=== PATIENT | male | born 1980 | race Caucasian/White ===

== ENCOUNTER 2017-05-27 21:34 | Inpatient (IN) | payer MEDICAID, OTHER ==
[~2017-05-27] VITALS: Ht 177.8 cm; Wt 80.1 kg
[2017-05-27] MEDS ORDERED: PALI39DI IM (21:51)
[2017-05-27 22:03] LABS: BASOPHILS % (AUTO) 0.6 % (0.0-2.0); EOSINOPHILS % (AUTO) 2.2 % (1.0-6.0); HEMATOCRIT 39.3 % (41-53); HEMOGLOBIN 13.5 g/dL (13.5-17.5); MEAN CORPUSCULAR HEMOGLOBIN 27.8 pg (26.0-34.0); MEAN CORPUSCULAR HGB CONC 34.4 G/dL (31.0-37.0); MEAN CORPUSCULAR VOLUME 81 fL (80-100); MONOCYTES # (AUTO) 0.9 K/uL (0.1-1.0); NEUTROPHILS # (AUTO) 4.4 K/uL (1.8-7.7); NEUTROPHILS % (AUTO) 52.2 % (40.0-70.0); PLATELET COUNT (AUTO) 215 K/uL (150-450); RED BLOOD CELL COUNT(AUTO) 4.87 MIL/uL (4.50-5.90); RED CELL DISTRIBUTION WIDTH 13.8 % (11.5-14.5)
[2017-05-27] MEDS ORDERED: DiphenhydrAMINE HCL 50 MG/ML VIAL IM ONE (22:15)
[2017-05-27] MEDS ORDERED: LORazepam 2 MG/ML VIAL IM ONE (22:15)
[2017-05-27] MEDS ORDERED: HALOPERIDOL LACTATE 5 MG/ML VIAL IM ONE (22:15)
[2017-05-27 22:20] LABS: ALANINE AMINOTRANSFERASE 67 U/L (12-78); ALBUMIN 3.9 g/dL (3.4-5.0); ALKALINE PHOSPHATASE 77 U/L (46-116); ANION GAP 13 mmol/L (8-16); ASPARTATE AMINOTRANSFERASE 41 U/L (15-37); BILIRUBIN,TOTAL 0.2 mg/dL (0.1-1.0); CALCIUM, TOTAL 8.5 mg/dL (8.8-10.5); CARBON DIOXIDE 26 mmol/L (22-29); CHLORIDE 100 mmol/L (98-107); CREATININE 0.65 mg/dL (0.60-1.30); GLOMERULAR FILTR. RATE CALC > 60 mL/min (>60); GLUCOSE,RANDOM 139 mg/dL (70-110); SODIUM SERUM 139 mmol/L (136-145); TOTAL PROTEIN, SERUM 7.5 g/dL (6.4-8.2); UREA NITROGEN, BLOOD 2 mg/dL (7-18)
[2017-05-27 22:24] LABS: POTASSIUM 2.6 mmol/L (3.5-5.1)
[2017-05-27] MEDS ORDERED: HALOPERIDOL 5 MG TABLET PO PRN (22:30)
[2017-05-27] MEDS ORDERED: ZOLPIDEM TARTRATE 10 MG TABLET PO PRN (22:30)
[2017-05-27] MEDS ORDERED: POTASSIUM CHLORIDE 20 MEQ ER TABLET PO ONE (22:45)
[2017-05-27 23:14] LABS: CHOL/HDL RATIO 4.7 (4.2-7.3); CHOLESTEROL 151 mg/dL (131-200); HDL CHOLESTEROL 32 mg/dL (40-60); LDL CHOL (CALC.) 75 mg/dL (0-130); THYROID STIMULATING HORMONE 2.72 uIU/mL (0.36-3.74); TRIGLYCERIDES 219 mg/dL (15-150)
[2017-05-28 01:24] LABS: AMPHET/METH SCREEN,URINE NEGATIVE (NEGATIVE); BARBITURATE SCREEN, URINE NEGATIVE (NEGATIVE); BENZODIAZEPINES SCREEN,URINE NEGATIVE (NEGATIVE); CANNABINOID SCREEN,URINE NEGATIVE (NEGATIVE); COCAINE SCREEN,URINE NEGATIVE (NEGATIVE); METHADONE SCREEN, URINE NEGATIVE (NEGATIVE); OPIATE SCREEN,URINE NEGATIVE (NEGATIVE)
[2017-05-28 01:26] LABS: PHENCYCLIDINE SCREEN,URINE NEGATIVE (NEGATIVE)
[2017-05-28 01:27] LABS: APPEARANCE,URINE CLEAR (CLEAR); BILIRUBIN,URINE NEGATIVE (NEGATIVE); GLUCOSE, URINE (UA) NEGATIVE (NEGATIVE); KETONES,URINE NEGATIVE (NEGATIVE); LEUKOCYTE ESTERASE ,URINE NEGATIVE (NEGATIVE); NITRATE,URINE NEGATIVE (NEGATIVE); OCCULT BLOOD,URINE NEGATIVE (NEGATIVE); PROTEIN,URINE NEGATIVE (NEGATIVE); UROBILINOGEN,URINE 0.2 mg/dL (<=1.0)
[2017-05-28 03:38] VITALS: BP 149/97
[2017-05-28] MEDS ORDERED: INFLUENZA VIRUS VACCINE QVS 2017-18 (3YR+)/PF 60 MCG/0.5 ML SYRINGE IM ONE (06:15)
[2017-05-28 08:28] VITALS: BP 128/84
[2017-05-28] MEDS ORDERED: ACETAMINOPHEN 325 MG TABLET PO PRN (10:00)
[2017-05-28] MEDS ORDERED: POTASSIUM CHLORIDE 20 MEQ ER TABLET PO ONE (10:00)
[2017-05-28] MEDS ORDERED: BACITRACIN 28.4 GM OINTMENT TP PRN (10:00)
[2017-05-28] MEDS ORDERED: MAG HYDROX/AL HYDROX/SIMETH ES 30 ML SUSPENSION UDCUP PO PRN (10:00)
[2017-05-28] MEDS ORDERED: PETROLATUM,WHITE 71 GM JELLY TP PRN (10:00)
[2017-05-28] MEDS ORDERED: BENZOCAINE/MENTHOL LOZENGE MM PRN (10:00)
[2017-05-28] MEDS ORDERED: CloNIDine HCL 0.1 MG TABLET PO PRN (10:00)
[2017-05-28] MEDS ORDERED: MAGNESIUM HYDROXIDE SUSPENSION 30 ML UDCUP PO PRN (10:00)
[2017-05-28] MEDS ORDERED: IBUPROFEN 600 MG TABLET PO PRN (10:00)
[2017-05-28] MEDS ORDERED: ALBUTEROL SULFATE HFA 90 MCG/PUFF 8 GM INHALER IH PRN (10:00)
[2017-05-28] MEDS ORDERED: LOPERAMIDE HCL 2 MG CAPSULE PO PRN (10:00)
[2017-05-28] MEDS ORDERED: ONDANSETRON HCL 4 MG TABLET PO PRN (10:00)
[2017-05-28] MEDS ORDERED: FLUO-191 PO (10:05)
[2017-05-28] MEDS ORDERED: PALI234D IM (10:05)
[2017-05-28] MEDS: NICOTINE 21 MG/24 HOUR PATCH TD SCH (11:25)
[2017-05-28] MEDS: FLUoxetine HCL 20 MG CAPSULE PO SCH (11:25)
[2017-05-28] MEDS: PALIPERIDONE 3 MG ER TABLET PO SCH ×2 (11:25→17:16)
[2017-05-28 16:19] VITALS: BP 130/91
[2017-05-29 01:46] VITALS: BP 114/74
[2017-05-29 06:13] LABS: POTASSIUM 3.9 mmol/L (3.5-5.1)
[2017-05-29 06:50] LABS: HEMOGLOBIN A1C 5.3 % (4.5-6.2)
[2017-05-29 08:31] VITALS: BP 131/96
[2017-05-29] MEDS: OMEGA-3/DHA/EPA/FISH OIL 1,000 MG CAPSULE PO SCH (09:18)
[2017-05-29] MEDS: NICOTINE 21 MG/24 HOUR PATCH TD SCH (09:18)
[2017-05-29] MEDS: PALIPERIDONE 3 MG ER TABLET PO SCH ×2 (09:18→16:26)
[2017-05-29] MEDS: FLUoxetine HCL 20 MG CAPSULE PO SCH (09:18)
[2017-05-29] MEDS: LORazepam 2 MG TABLET PO PRN ×2 (13:06→17:09)
[2017-05-29 16:42] VITALS: BP 137/95
[2017-05-30] MEDS: LORazepam 2 MG TABLET PO PRN (06:41)
[2017-05-30] MEDS: PALIPERIDONE 3 MG ER TABLET PO SCH (07:53)
[2017-05-30] MEDS: OMEGA-3/DHA/EPA/FISH OIL 1,000 MG CAPSULE PO SCH (07:53)
[2017-05-30] MEDS: NICOTINE 21 MG/24 HOUR PATCH TD SCH (08:23)
[2017-05-30] MEDS: FLUoxetine HCL 20 MG CAPSULE PO SCH (08:23)
[2017-05-30 08:28] VITALS: BP 122/94
[2017-05-30] MEDS ORDERED: PALI3 PO (09:20)
[2017-06-03] MEDS ORDERED: PALIPERIDONE PALMITATE 234 MG/1.5 ML SYRINGE IM SCH (09:00)
== END 2017-05-30 14:20 | disposition home or self-care (01) | DRG 750 ==
LOC: EMS 21:35 → 3EC 05-28 03:16
PROC: 3E0234Z Introduction of Serum, Toxoid and Vaccine into Muscle, Percutaneous Approach (ICD-10-PCS; principal; 2017-05-28)
DX: F25.1 Schizoaffective disorder, depressive type (principal); E83.51 Hypocalcemia; R45.851 Suicidal ideations; E78.1 Pure hyperglyceridemia; E78.5 Hyperlipidemia, unspecified; E87.6 Hypokalemia; F10.10 Alcohol abuse, uncomplicated; F17.200 Nicotine dependence, unspecified, uncomplicated; F41.9 Anxiety disorder, unspecified; G47.00 Insomnia, unspecified; R03.0 Elevated blood-pressure reading, without diagnosis of hypertension; Z71.6 Tobacco abuse counseling; Z79.899 Other long term (current) drug therapy; Z23 Encounter for immunization
CPT/HCPCS: 82306; 83036; 84132; 84443; 90471; G0480; J1200; J1630; J2060

== ENCOUNTER 2017-10-10 11:43 | Inpatient (IN) | payer MEDICAID, OTHER ==
[~2017-10-10] VITALS: Ht 170.2 cm; Wt 85.3 kg
[~2017-10-10 11:43] MED LIST: FLUO-191 PO; PALI234D IM; PALI3 PO
[2017-10-10 12:35] LABS: BASOPHILS % (AUTO) 0.4 % (0.0-2.0); EOSINOPHILS % (AUTO) 1.3 % (1.0-6.0); HEMATOCRIT 41.6 % (41-53); HEMOGLOBIN 14.8 g/dL (13.5-17.5); LYMPHOCYTES # (AUTO) 1.3 K/uL (1.0-4.8); LYMPHOCYTES % (AUTO) 12.3 % (22.0-44.0); MEAN CORPUSCULAR HEMOGLOBIN 29.1 pg (26.0-34.0); MEAN CORPUSCULAR HGB CONC 35.7 G/dL (31.0-37.0); MEAN CORPUSCULAR VOLUME 82 fL (80-100); MONOCYTES # (AUTO) 0.9 K/uL (0.1-1.0); MONOCYTES % (AUTO) 8.4 % (2.0-9.0); NEUTROPHILS # (AUTO) 8.5 K/uL (1.8-7.7); NEUTROPHILS % (AUTO) 77.6 % (40.0-70.0); PLATELET COUNT (AUTO) 297 K/uL (150-450)
[2017-10-10 12:38] LABS: ANION GAP 11 mmol/L (8-16); CALCIUM, TOTAL 8.9 mg/dL (8.8-10.5); CARBON DIOXIDE 26 mmol/L (22-29); CHLORIDE 92 mmol/L (98-107); CREATININE 0.63 mg/dL (0.60-1.30); GLOMERULAR FILTR. RATE CALC > 60 mL/min (>60); GLUCOSE,RANDOM 93 mg/dL (70-110); SODIUM SERUM 129 mmol/L (136-145); UREA NITROGEN, BLOOD 3 mg/dL (7-18)
[2017-10-10 12:41] LABS: ALANINE AMINOTRANSFERASE 17 U/L (12-78); ALBUMIN 3.7 g/dL (3.4-5.0); ALKALINE PHOSPHATASE 63 U/L (46-116); ASPARTATE AMINOTRANSFERASE 14 U/L (15-37); BILIRUBIN,TOTAL 0.7 mg/dL (0.1-1.0); TOTAL PROTEIN, SERUM 7.2 g/dL (6.4-8.2)
[2017-10-10 14:15] LABS: AMPHET/METH SCREEN,URINE POSITIVE (NEGATIVE); BARBITURATE SCREEN, URINE NEGATIVE (NEGATIVE); BENZODIAZEPINES SCREEN,URINE NEGATIVE (NEGATIVE); CANNABINOID SCREEN,URINE NEGATIVE (NEGATIVE); COCAINE SCREEN,URINE NEGATIVE (NEGATIVE); METHADONE SCREEN, URINE NEGATIVE (NEGATIVE); OPIATE SCREEN,URINE NEGATIVE (NEGATIVE); PHENCYCLIDINE SCREEN,URINE NEGATIVE (NEGATIVE)
[2017-10-10] MEDS ORDERED: TERBINAFINE HCL 1% 30 GM CREAM TP ONE (14:15)
[2017-10-10] MEDS ORDERED: DiphenhydrAMINE HCL 50 MG/ML VIAL IM ONE (14:15)
[2017-10-10] MEDS ORDERED: LORazepam 2 MG/ML VIAL IM ONE (14:15)
[2017-10-10] MEDS ORDERED: MUPIROCIN CALCIUM 2% 22 GM OINTMENT TP ONE (14:15)
[2017-10-10] MEDS ORDERED: HALOPERIDOL LACTATE 5 MG/ML VIAL IM ONE (14:15)
[2017-10-10 14:31] LABS: APPEARANCE,URINE CLEAR (CLEAR); BILIRUBIN,URINE NEGATIVE (NEGATIVE); GLUCOSE, URINE (UA) NEGATIVE (NEGATIVE); KETONES,URINE NEGATIVE (NEGATIVE); LEUKOCYTE ESTERASE ,URINE NEGATIVE (NEGATIVE); NITRATE,URINE NEGATIVE (NEGATIVE); OCCULT BLOOD,URINE NEGATIVE (NEGATIVE); PROTEIN,URINE NEGATIVE (NEGATIVE); UROBILINOGEN,URINE 0.2 mg/dL (<=1.0)
[2017-10-10] MEDS ORDERED: DiphenhydrAMINE HCL 25 MG CAPSULE PO ONE (14:45)
[2017-10-10] MEDS ORDERED: LORazepam 2 MG TABLET PO ONE (14:45)
[2017-10-10] MEDS ORDERED: HALOPERIDOL 5 MG TABLET PO ONE (14:45)
[2017-10-10] MEDS ORDERED: POTASSIUM CHLORIDE 20 MEQ ER TABLET PO ONE (15:00)
[2017-10-10] MEDS ORDERED: MAGNESIUM HYDROXIDE SUSPENSION 30 ML UDCUP PO PRN (20:00)
[2017-10-10] MEDS ORDERED: MAG HYDROX/AL HYDROX/SIMETH ES 30 ML SUSPENSION UDCUP PO PRN (20:00)
[2017-10-11 00:34] VITALS: BP 116/69
[2017-10-11 09:09] LABS: CHOL/HDL RATIO 3.4 (4.2-7.3)
[2017-10-11] MEDS ORDERED: POTASSIUM CHLORIDE 20 MEQ ER TABLET PO ONE (09:30)
[2017-10-11] MEDS ORDERED: SODIUM CHLORIDE 1 GM TABLET PO ONE ×2 (09:30→17:00)
[2017-10-11] MEDS: NICOTINE 21 MG/24 HOUR PATCH TD SCH (09:44)
[2017-10-11 11:34] VITALS: BP 110/62
[2017-10-11 16:00] VITALS: BP 114/79
[2017-10-11] MEDS: PALIPERIDONE 6 MG ER TABLET PO SCH (20:40)
[2017-10-12 06:57] VITALS: BP 110/76
[2017-10-12] MEDS ORDERED: PETROLATUM,WHITE 71 GM JELLY TP PRN (07:00)
[2017-10-12] MEDS ORDERED: CloNIDine HCL 0.1 MG TABLET PO PRN (07:00)
[2017-10-12] MEDS ORDERED: ALBUTEROL SULFATE HFA 90 MCG/PUFF 8 GM INHALER IH PRN (07:00)
[2017-10-12] MEDS ORDERED: LOPERAMIDE HCL 2 MG CAPSULE PO PRN (07:00)
[2017-10-12] MEDS ORDERED: ONDANSETRON HCL 4 MG TABLET PO PRN (07:00)
[2017-10-12] MEDS ORDERED: BENZOCAINE/MENTHOL LOZENGE MM PRN (07:00)
[2017-10-12] MEDS ORDERED: BACITRACIN 28.4 GM OINTMENT TP PRN (07:00)
[2017-10-12 08:25] VITALS: BP 104/73
[2017-10-12 08:28] LABS: ANION GAP 4 mmol/L (8-16); CALCIUM, TOTAL 8.7 mg/dL (8.8-10.5); CARBON DIOXIDE 32 mmol/L (22-29); CHLORIDE 105 mmol/L (98-107); CREATININE 0.81 mg/dL (0.60-1.30); GLOMERULAR FILTR. RATE CALC > 60 mL/min (>60); GLUCOSE,RANDOM 75 mg/dL (70-110); SODIUM SERUM 141 mmol/L (136-145); UREA NITROGEN, BLOOD 8 mg/dL (7-18)
[2017-10-12] MEDS: LORazepam 2 MG TABLET PO PRN ×2 (09:27→16:47)
[2017-10-12] MEDS: NICOTINE 21 MG/24 HOUR PATCH TD SCH (09:27)
[2017-10-12] MEDS: FLUoxetine HCL 20 MG CAPSULE PO SCH (09:27)
[2017-10-12] MEDS: HALOPERIDOL 5 MG TABLET PO PRN ×2 (09:27→16:47)
[2017-10-12 16:00] VITALS: BP 130/83
[2017-10-12] MEDS: PALIPERIDONE 6 MG ER TABLET PO SCH (20:34)
[2017-10-13 06:20] VITALS: BP 96/67
[2017-10-13] MEDS: LORazepam 2 MG TABLET PO PRN ×2 (08:16→16:16)
[2017-10-13] MEDS: HALOPERIDOL 5 MG TABLET PO PRN ×2 (08:16→16:16)
[2017-10-13] MEDS: NICOTINE 21 MG/24 HOUR PATCH TD SCH (08:16)
[2017-10-13] MEDS: FLUoxetine HCL 20 MG CAPSULE PO SCH (08:16)
[2017-10-13 13:28] VITALS: BP 100/61
[2017-10-13 16:00] VITALS: BP 141/69
[2017-10-13] MEDS: NICOTINE POLACRILEX 2 MG LOZENGE PO PRN (16:15)
[2017-10-13] MEDS: PALIPERIDONE 6 MG ER TABLET PO SCH (21:23)
[2017-10-14 06:38] VITALS: BP 104/65
[2017-10-14 09:14] VITALS: BP 103/68
[2017-10-14] MEDS: NICOTINE 21 MG/24 HOUR PATCH TD SCH (10:06)
[2017-10-14] MEDS: FLUoxetine HCL 20 MG CAPSULE PO SCH (10:10)
[2017-10-14 16:00] VITALS: BP 118/76
[2017-10-14] MEDS: HALOPERIDOL 5 MG TABLET PO PRN (16:57)
[2017-10-14] MEDS: LORazepam 2 MG TABLET PO PRN (16:57)
[2017-10-14] MEDS: PALIPERIDONE 6 MG ER TABLET PO SCH (20:27)
[2017-10-15 00:13] VITALS: BP 119/74
[2017-10-15 08:20] VITALS: BP 101/71
[2017-10-15] MEDS: NICOTINE 21 MG/24 HOUR PATCH TD SCH (09:00)
[2017-10-15] MEDS: FLUoxetine HCL 20 MG CAPSULE PO SCH (10:05)
[2017-10-15] MEDS: LORazepam 2 MG TABLET PO PRN ×2 (10:09→20:43)
[2017-10-15] MEDS: NICOTINE POLACRILEX 2 MG LOZENGE PO PRN ×2 (10:09→14:23)
[2017-10-15 16:00] VITALS: BP 111/68
[2017-10-15] MEDS: PALIPERIDONE 6 MG ER TABLET PO SCH (20:43)
[2017-10-16] MEDS: NICOTINE POLACRILEX 2 MG LOZENGE PO PRN ×4 (01:44→12:19)
[2017-10-16 06:30] VITALS: BP 115/78
[2017-10-16] MEDS: LORazepam 2 MG TABLET PO PRN (06:35)
[2017-10-16 08:23] VITALS: BP 109/76
[2017-10-16] MEDS: FLUoxetine HCL 20 MG CAPSULE PO SCH (08:25)
[2017-10-16] MEDS: NICOTINE 21 MG/24 HOUR PATCH TD SCH (09:00)
[2017-10-16 16:00] VITALS: BP 109/67
[2017-10-16] MEDS: PALIPERIDONE 6 MG ER TABLET PO SCH (20:42)
[2017-10-17 04:52] VITALS: BP 117/78
[2017-10-17] MEDS: LORazepam 2 MG TABLET PO PRN ×2 (06:03→14:54)
[2017-10-17] MEDS: NICOTINE POLACRILEX 2 MG LOZENGE PO PRN ×3 (06:03→14:54)
[2017-10-17 08:00] VITALS: BP 108/73
[2017-10-17] MEDS: FLUoxetine HCL 20 MG CAPSULE PO SCH (08:45)
[2017-10-17] MEDS: NICOTINE 21 MG/24 HOUR PATCH TD SCH (08:45)
[2017-10-17] MEDS ORDERED: TUBERCULIN, PURIFIED PROTEIN DERIVATIVE 5 TU/0.1 ML SYG ID ONE (12:15)
[2017-10-17 16:00] VITALS: BP 106/69
[2017-10-17] MEDS: PALIPERIDONE 6 MG ER TABLET PO SCH (20:22)
[2017-10-18] MEDS: NICOTINE POLACRILEX 2 MG LOZENGE PO PRN ×2 (05:18→09:08)
[2017-10-18 05:22] VITALS: BP 104/69
[2017-10-18] MEDS: LORazepam 2 MG TABLET PO PRN ×3 (06:17→21:00)
[2017-10-18] MEDS: FLUoxetine HCL 20 MG CAPSULE PO SCH (08:17)
[2017-10-18] MEDS: CHOLECALCIFEROL (VIT D3) 1,000 UNITS TABLET PO SCH (08:17)
[2017-10-18 08:35] VITALS: BP 103/69
[2017-10-18] MEDS: NICOTINE 21 MG/24 HOUR PATCH TD SCH (09:00)
[2017-10-18 16:38] VITALS: BP 101/62
[2017-10-18] MEDS: PALIPERIDONE 6 MG ER TABLET PO SCH (21:00)
[2017-10-19 02:00] VITALS: BP 113/77
[2017-10-19] MEDS: NICOTINE POLACRILEX 2 MG LOZENGE PO PRN ×3 (06:34→16:06)
[2017-10-19] MEDS: LORazepam 2 MG TABLET PO PRN ×2 (06:34→16:05)
[2017-10-19] MEDS: CHOLECALCIFEROL (VIT D3) 1,000 UNITS TABLET PO SCH (08:41)
[2017-10-19] MEDS: FLUoxetine HCL 20 MG CAPSULE PO SCH (08:41)
[2017-10-19] MEDS: NICOTINE 21 MG/24 HOUR PATCH TD SCH (08:42)
[2017-10-19 09:24] VITALS: BP 100/62
[2017-10-19] MEDS: HALOPERIDOL 5 MG TABLET PO PRN (16:05)
[2017-10-19 16:40] VITALS: BP 116/71
[2017-10-19] MEDS: PALIPERIDONE 6 MG ER TABLET PO SCH (20:33)
[2017-10-19] MEDS: ZOLPIDEM TARTRATE 10 MG TABLET PO PRN (20:33)
[2017-10-20 06:25] VITALS: BP 110/65
[2017-10-20] MEDS: NICOTINE POLACRILEX 2 MG LOZENGE PO PRN ×3 (06:34→16:20)
[2017-10-20] MEDS: LORazepam 2 MG TABLET PO PRN ×3 (06:34→17:03)
[2017-10-20] MEDS: FLUoxetine HCL 20 MG CAPSULE PO SCH (08:25)
[2017-10-20] MEDS: CHOLECALCIFEROL (VIT D3) 1,000 UNITS TABLET PO SCH (08:25)
[2017-10-20 08:41] VITALS: BP 100/62
[2017-10-20] MEDS: NICOTINE 21 MG/24 HOUR PATCH TD SCH (09:00)
[2017-10-20 16:00] VITALS: BP 112/69
[2017-10-20] MEDS: HALOPERIDOL 5 MG TABLET PO PRN (16:21)
[2017-10-20] MEDS: PALIPERIDONE 6 MG ER TABLET PO SCH (21:18)
[2017-10-20] MEDS: ZOLPIDEM TARTRATE 10 MG TABLET PO PRN (21:18)
[2017-10-21 05:35] VITALS: BP 110/65
[2017-10-21] MEDS: NICOTINE POLACRILEX 2 MG LOZENGE PO PRN ×2 (05:55→12:47)
[2017-10-21] MEDS: LORazepam 2 MG TABLET PO PRN ×2 (05:55→16:38)
[2017-10-21 08:15] VITALS: BP 121/74
[2017-10-21] MEDS: NICOTINE 21 MG/24 HOUR PATCH TD SCH (08:38)
[2017-10-21] MEDS: CHOLECALCIFEROL (VIT D3) 1,000 UNITS TABLET PO SCH (08:38)
[2017-10-21] MEDS: FLUoxetine HCL 20 MG CAPSULE PO SCH (08:38)
[2017-10-21 16:28] VITALS: BP 124/84
[2017-10-21] MEDS: HALOPERIDOL 5 MG TABLET PO PRN (16:38)
[2017-10-21] MEDS: ZOLPIDEM TARTRATE 10 MG TABLET PO PRN (21:40)
[2017-10-21] MEDS: PALIPERIDONE 6 MG ER TABLET PO SCH (21:40)
[2017-10-22 00:18] VITALS: BP 111/65
[2017-10-22] MEDS: NICOTINE POLACRILEX 2 MG LOZENGE PO PRN ×2 (06:06→22:24)
[2017-10-22] MEDS: LORazepam 2 MG TABLET PO PRN ×3 (06:06→20:53)
[2017-10-22 08:20] VITALS: BP 117/81
[2017-10-22] MEDS: NICOTINE 21 MG/24 HOUR PATCH TD SCH (09:00)
[2017-10-22] MEDS: FLUoxetine HCL 20 MG CAPSULE PO SCH (09:05)
[2017-10-22] MEDS: CHOLECALCIFEROL (VIT D3) 1,000 UNITS TABLET PO SCH (09:05)
[2017-10-22 16:00] VITALS: BP 114/68
[2017-10-22] MEDS: PALIPERIDONE 6 MG ER TABLET PO SCH (20:53)
[2017-10-22] MEDS: ZOLPIDEM TARTRATE 10 MG TABLET PO PRN (22:25)
[2017-10-23 05:54] VITALS: BP 118/78
[2017-10-23] MEDS: NICOTINE POLACRILEX 2 MG LOZENGE PO PRN ×3 (06:19→14:40)
[2017-10-23] MEDS: LORazepam 2 MG TABLET PO PRN ×2 (06:19→14:40)
[2017-10-23 08:30] VITALS: BP 120/85
[2017-10-23] MEDS: FLUoxetine HCL 20 MG CAPSULE PO SCH (08:36)
[2017-10-23] MEDS: CHOLECALCIFEROL (VIT D3) 1,000 UNITS TABLET PO SCH (08:36)
[2017-10-23] MEDS: NICOTINE 21 MG/24 HOUR PATCH TD SCH (08:38)
[2017-10-23 16:00] VITALS: BP 109/76
[2017-10-23] MEDS ORDERED: NICOTINE 21 MG/24 HOUR PATCH TD PRN (20:30)
[2017-10-23] MEDS: PALIPERIDONE 6 MG ER TABLET PO SCH (20:56)
[2017-10-23] MEDS: ZOLPIDEM TARTRATE 10 MG TABLET PO PRN (20:56)
[2017-10-24] MEDS: NICOTINE POLACRILEX 2 MG LOZENGE PO PRN ×2 (04:55→14:13)
[2017-10-24] MEDS: LORazepam 2 MG TABLET PO PRN ×2 (04:55→14:13)
[2017-10-24 04:56] VITALS: BP 137/71
[2017-10-24 08:27] VITALS: BP 131/85
[2017-10-24] MEDS: CHOLECALCIFEROL (VIT D3) 1,000 UNITS TABLET PO SCH (08:53)
[2017-10-24] MEDS: FLUoxetine HCL 20 MG CAPSULE PO SCH (08:53)
[2017-10-24 16:00] VITALS: BP 120/80
[2017-10-24] MEDS: PALIPERIDONE 6 MG ER TABLET PO SCH (20:49)
[2017-10-25 00:05] VITALS: BP 115/73
[2017-10-25] MEDS: LORazepam 2 MG TABLET PO PRN ×3 (00:20→13:16)
[2017-10-25] MEDS: ZOLPIDEM TARTRATE 10 MG TABLET PO PRN (00:20)
[2017-10-25] MEDS: NICOTINE POLACRILEX 2 MG LOZENGE PO PRN ×3 (00:26→13:13)
[2017-10-25 07:55] VITALS: BP 118/76
[2017-10-25] MEDS: HALOPERIDOL 5 MG TABLET PO PRN (08:09)
[2017-10-25] MEDS: CHOLECALCIFEROL (VIT D3) 1,000 UNITS TABLET PO SCH (08:09)
[2017-10-25] MEDS: FLUoxetine HCL 20 MG CAPSULE PO SCH (08:09)
[2017-10-25 16:28] VITALS: BP 117/72
[2017-10-25] MEDS: PALIPERIDONE 6 MG ER TABLET PO SCH (20:35)
[2017-10-26 03:45] VITALS: BP 105/78
[2017-10-26] MEDS: LORazepam 2 MG TABLET PO PRN ×3 (04:07→22:56)
[2017-10-26] MEDS: NICOTINE POLACRILEX 2 MG LOZENGE PO PRN ×4 (04:07→22:53)
[2017-10-26 08:51] VITALS: BP 130/88
[2017-10-26] MEDS: CHOLECALCIFEROL (VIT D3) 1,000 UNITS TABLET PO SCH (10:07)
[2017-10-26] MEDS: FLUoxetine HCL 20 MG CAPSULE PO SCH (10:07)
[2017-10-26 16:14] VITALS: BP 100/60
[2017-10-26] MEDS: PALIPERIDONE 6 MG ER TABLET PO SCH (21:11)
[2017-10-27 05:42] VITALS: BP 118/76
[2017-10-27] MEDS: LORazepam 2 MG TABLET PO PRN ×3 (06:06→16:34)
[2017-10-27] MEDS: NICOTINE POLACRILEX 2 MG LOZENGE PO PRN ×2 (06:06→11:03)
[2017-10-27 08:10] VITALS: BP 113/75
[2017-10-27] MEDS: FLUoxetine HCL 20 MG CAPSULE PO SCH (08:54)
[2017-10-27] MEDS: CHOLECALCIFEROL (VIT D3) 1,000 UNITS TABLET PO SCH (08:54)
[2017-10-27 16:09] VITALS: BP 106/61
[2017-10-27] MEDS: PALIPERIDONE 6 MG ER TABLET PO SCH (21:04)
[2017-10-28] MEDS: NICOTINE POLACRILEX 2 MG LOZENGE PO PRN ×3 (05:12→16:06)
[2017-10-28] MEDS: LORazepam 2 MG TABLET PO PRN ×3 (05:12→16:06)
[2017-10-28 05:48] VITALS: BP 110/68
[2017-10-28 08:15] VITALS: BP 108/63
[2017-10-28] MEDS: FLUoxetine HCL 20 MG CAPSULE PO SCH (08:54)
[2017-10-28] MEDS: CHOLECALCIFEROL (VIT D3) 1,000 UNITS TABLET PO SCH (08:54)
[2017-10-28 16:00] VITALS: BP 107/64
[2017-10-28] MEDS: HALOPERIDOL 5 MG TABLET PO PRN (16:06)
[2017-10-28] MEDS: PALIPERIDONE 3 MG ER TABLET PO SCH (20:37)
[2017-10-29 04:10] VITALS: BP 108/66
[2017-10-29] MEDS: LORazepam 2 MG TABLET PO PRN ×3 (04:25→20:47)
[2017-10-29] MEDS: HALOPERIDOL 5 MG TABLET PO PRN (04:58)
[2017-10-29 08:27] VITALS: BP_SYST 114; BP_SYST 138; BP_DIAS 73; BP_DIAS 98
[2017-10-29] MEDS: CHOLECALCIFEROL (VIT D3) 1,000 UNITS TABLET PO SCH (08:51)
[2017-10-29] MEDS: FLUoxetine HCL 20 MG CAPSULE PO SCH (08:52)
[2017-10-29] MEDS: NICOTINE POLACRILEX 2 MG LOZENGE PO PRN ×2 (10:09→12:47)
[2017-10-29 16:00] VITALS: BP 106/67
[2017-10-29] MEDS: ZOLPIDEM TARTRATE 10 MG TABLET PO PRN (20:47)
[2017-10-29] MEDS: PALIPERIDONE 3 MG ER TABLET PO SCH (20:47)
[2017-10-30 03:51] VITALS: BP 102/62
[2017-10-30] MEDS: LORazepam 2 MG TABLET PO PRN ×3 (04:06→18:14)
[2017-10-30 08:09] VITALS: BP 138/87
[2017-10-30] MEDS: FLUoxetine HCL 20 MG CAPSULE PO SCH (08:17)
[2017-10-30] MEDS: CHOLECALCIFEROL (VIT D3) 1,000 UNITS TABLET PO SCH (08:17)
[2017-10-30] MEDS: NICOTINE POLACRILEX 2 MG LOZENGE PO PRN ×2 (08:19→17:33)
[2017-10-30 16:42] VITALS: BP 108/64
[2017-10-30] MEDS: PALIPERIDONE 3 MG ER TABLET PO SCH (20:39)
[2017-10-31] MEDS: LORazepam 2 MG TABLET PO PRN ×3 (04:12→13:38)
[2017-10-31] MEDS: NICOTINE POLACRILEX 2 MG LOZENGE PO PRN ×3 (04:12→13:38)
[2017-10-31 04:16] VITALS: BP 117/69
[2017-10-31 08:00] VITALS: BP 112/83
[2017-10-31] MEDS: FLUoxetine HCL 20 MG CAPSULE PO SCH (08:37)
[2017-10-31] MEDS: CHOLECALCIFEROL (VIT D3) 1,000 UNITS TABLET PO SCH (08:37)
[2017-10-31 16:00] VITALS: BP 110/74
[2017-10-31] MEDS: ZOLPIDEM TARTRATE 10 MG TABLET PO PRN (20:10)
[2017-10-31] MEDS: PALIPERIDONE 3 MG ER TABLET PO SCH (20:10)
[2017-11-01 03:23] VITALS: BP 102/66
[2017-11-01] MEDS: LORazepam 2 MG TABLET PO PRN ×3 (03:37→21:37)
[2017-11-01] MEDS: NICOTINE POLACRILEX 2 MG LOZENGE PO PRN ×2 (03:37→11:02)
[2017-11-01 08:00] VITALS: BP 116/80
[2017-11-01] MEDS: CHOLECALCIFEROL (VIT D3) 1,000 UNITS TABLET PO SCH (08:21)
[2017-11-01] MEDS: FLUoxetine HCL 20 MG CAPSULE PO SCH (08:21)
[2017-11-01 16:25] VITALS: BP 132/92
[2017-11-01] MEDS: PALIPERIDONE 3 MG ER TABLET PO SCH (20:53)
[2017-11-01] MEDS: ZOLPIDEM TARTRATE 10 MG TABLET PO PRN (21:37)
[2017-11-02 04:58] VITALS: BP 125/70
[2017-11-02] MEDS: LORazepam 2 MG TABLET PO PRN ×3 (05:22→20:56)
[2017-11-02] MEDS: NICOTINE POLACRILEX 2 MG LOZENGE PO PRN ×3 (05:22→20:56)
[2017-11-02 08:15] VITALS: BP 110/70
[2017-11-02] MEDS: FLUoxetine HCL 20 MG CAPSULE PO SCH (08:59)
[2017-11-02] MEDS: CHOLECALCIFEROL (VIT D3) 1,000 UNITS TABLET PO SCH (08:59)
[2017-11-02 16:10] VITALS: BP 135/85
[2017-11-02] MEDS: PALIPERIDONE 3 MG ER TABLET PO SCH (20:56)
[2017-11-02] MEDS: ZOLPIDEM TARTRATE 10 MG TABLET PO PRN (20:56)
[2017-11-03 04:50] VITALS: BP 108/66
[2017-11-03] MEDS: LORazepam 2 MG TABLET PO PRN ×3 (04:53→20:11)
[2017-11-03] MEDS: NICOTINE POLACRILEX 2 MG LOZENGE PO PRN ×3 (05:09→20:13)
[2017-11-03 08:09] VITALS: BP 111/74
[2017-11-03] MEDS: FLUoxetine HCL 20 MG CAPSULE PO SCH (09:07)
[2017-11-03] MEDS: CHOLECALCIFEROL (VIT D3) 1,000 UNITS TABLET PO SCH (09:07)
[2017-11-03 16:08] VITALS: BP 115/71
[2017-11-03] MEDS: PALIPERIDONE 3 MG ER TABLET PO SCH (20:11)
[2017-11-04 00:18] VITALS: BP 106/61
[2017-11-04] MEDS: NICOTINE POLACRILEX 2 MG LOZENGE PO PRN (05:48)
[2017-11-04] MEDS: LORazepam 2 MG TABLET PO PRN ×2 (05:49→16:48)
[2017-11-04 08:14] VITALS: BP 128/87
[2017-11-04] MEDS: CHOLECALCIFEROL (VIT D3) 1,000 UNITS TABLET PO SCH (08:51)
[2017-11-04] MEDS: FLUoxetine HCL 20 MG CAPSULE PO SCH (08:51)
[2017-11-04 16:58] VITALS: BP 122/84
[2017-11-04] MEDS: PALIPERIDONE 3 MG ER TABLET PO SCH (20:30)
[2017-11-04] MEDS: ZOLPIDEM TARTRATE 10 MG TABLET PO PRN (20:30)
[2017-11-05 00:10] VITALS: BP 101/61
[2017-11-05] MEDS: LORazepam 2 MG TABLET PO PRN ×3 (06:01→23:52)
[2017-11-05 08:12] VITALS: BP 131/88
[2017-11-05] MEDS: NICOTINE POLACRILEX 2 MG LOZENGE PO PRN ×2 (08:39→23:52)
[2017-11-05] MEDS: CHOLECALCIFEROL (VIT D3) 1,000 UNITS TABLET PO SCH (08:39)
[2017-11-05] MEDS: FLUoxetine HCL 20 MG CAPSULE PO SCH (08:39)
[2017-11-05 16:27] VITALS: BP 121/76
[2017-11-05] MEDS: PALIPERIDONE 3 MG ER TABLET PO SCH (20:41)
[2017-11-06 05:41] VITALS: BP 98/64
[2017-11-06 09:00] VITALS: BP 142/95
[2017-11-06] MEDS: LORazepam 2 MG TABLET PO PRN ×2 (09:30→18:23)
[2017-11-06] MEDS: FLUoxetine HCL 20 MG CAPSULE PO SCH (09:31)
[2017-11-06] MEDS: CHOLECALCIFEROL (VIT D3) 1,000 UNITS TABLET PO SCH (09:31)
[2017-11-06] MEDS: NICOTINE POLACRILEX 2 MG LOZENGE PO PRN ×2 (09:31→18:23)
[2017-11-06 17:02] VITALS: BP 128/78
[2017-11-06] MEDS: PALIPERIDONE 3 MG ER TABLET PO SCH (20:43)
[2017-11-07 03:56] VITALS: BP 102/64
[2017-11-07] MEDS: LORazepam 2 MG TABLET PO PRN ×3 (04:00→20:39)
[2017-11-07 08:00] VITALS: BP 132/86
[2017-11-07] MEDS: CHOLECALCIFEROL (VIT D3) 1,000 UNITS TABLET PO SCH (08:26)
[2017-11-07] MEDS: FLUoxetine HCL 20 MG CAPSULE PO SCH (08:26)
[2017-11-07] MEDS: NICOTINE POLACRILEX 2 MG LOZENGE PO PRN ×3 (08:46→20:39)
[2017-11-07 16:00] VITALS: BP 114/73
[2017-11-07] MEDS: PALIPERIDONE 3 MG ER TABLET PO SCH (20:35)
[2017-11-07] MEDS: ZOLPIDEM TARTRATE 10 MG TABLET PO PRN (20:39)
[2017-11-08] MEDS: NICOTINE POLACRILEX 2 MG LOZENGE PO PRN ×2 (05:08→16:57)
[2017-11-08] MEDS: LORazepam 2 MG TABLET PO PRN ×3 (05:08→16:55)
[2017-11-08 05:22] VITALS: BP 104/72
[2017-11-08 08:12] LABS: BASOPHILS % (AUTO) 0.3 % (0.0-2.0); EOSINOPHILS % (AUTO) 1.6 % (1.0-6.0); HEMATOCRIT 44.1 % (41-53); LYMPHOCYTES # (AUTO) 1.7 K/uL (1.0-4.8); LYMPHOCYTES % (AUTO) 27.6 % (22.0-44.0); MEAN CORPUSCULAR HEMOGLOBIN 28.4 pg (26.0-34.0); MEAN CORPUSCULAR VOLUME 83 fL (80-100); MONOCYTES # (AUTO) 0.5 K/uL (0.1-1.0); MONOCYTES % (AUTO) 7.8 % (2.0-9.0); NEUTROPHILS # (AUTO) 3.8 K/uL (1.8-7.7); NEUTROPHILS % (AUTO) 62.7 % (40.0-70.0); PLATELET COUNT (AUTO) 219 K/uL (150-450); RED BLOOD CELL COUNT(AUTO) 5.29 MIL/uL (4.50-5.90); RED CELL DISTRIBUTION WIDTH 14.4 % (11.5-14.5)
[2017-11-08 08:25] VITALS: BP 116/80
[2017-11-08] MEDS: CHOLECALCIFEROL (VIT D3) 1,000 UNITS TABLET PO SCH (08:30)
[2017-11-08] MEDS: FLUoxetine HCL 20 MG CAPSULE PO SCH (08:30)
[2017-11-08 08:59] LABS: ALANINE AMINOTRANSFERASE 26 U/L (12-78); ALBUMIN 4.1 g/dL (3.4-5.0); ALKALINE PHOSPHATASE 57 U/L (46-116); ANION GAP 9 mmol/L (8-16); ASPARTATE AMINOTRANSFERASE 17 U/L (15-37); BILIRUBIN,TOTAL 0.7 mg/dL (0.1-1.0); CALCIUM, TOTAL 8.7 mg/dL (8.8-10.5); CARBON DIOXIDE 27 mmol/L (22-29); CHLORIDE 96 mmol/L (98-107); CREATININE 0.64 mg/dL (0.60-1.30); GLOMERULAR FILTR. RATE CALC > 60 mL/min (>60); GLUCOSE,RANDOM 72 mg/dL (70-110); POTASSIUM 4.7 mmol/L (3.5-5.1); SODIUM SERUM 132 mmol/L (136-145); TOTAL PROTEIN, SERUM 7.5 g/dL (6.4-8.2); UREA NITROGEN, BLOOD 7 mg/dL (7-18)
[2017-11-08] MEDS: SODIUM CHLORIDE 1 GM TABLET PO SCH ×3 (10:23→16:55)
[2017-11-08 17:07] VITALS: BP 115/71
[2017-11-08] MEDS: PALIPERIDONE 3 MG ER TABLET PO SCH (20:57)
[2017-11-08] MEDS: ZOLPIDEM TARTRATE 10 MG TABLET PO PRN (20:57)
[2017-11-09] MEDS: NICOTINE POLACRILEX 2 MG LOZENGE PO PRN ×2 (04:38→16:41)
[2017-11-09] MEDS: LORazepam 2 MG TABLET PO PRN ×2 (04:38→13:35)
[2017-11-09 05:14] VITALS: BP 112/68
[2017-11-09 08:00] VITALS: BP 135/63
[2017-11-09] MEDS: SODIUM CHLORIDE 1 GM TABLET PO SCH ×3 (09:23→16:41)
[2017-11-09] MEDS: CHOLECALCIFEROL (VIT D3) 1,000 UNITS TABLET PO SCH (09:23)
[2017-11-09] MEDS: FLUoxetine HCL 20 MG CAPSULE PO SCH (09:23)
[2017-11-09 16:00] VITALS: BP 130/85
[2017-11-09] MEDS: ZOLPIDEM TARTRATE 10 MG TABLET PO PRN (20:17)
[2017-11-09] MEDS: PALIPERIDONE 3 MG ER TABLET PO SCH (20:17)
[2017-11-10 03:08] VITALS: BP 139/88
[2017-11-10] MEDS: LORazepam 2 MG TABLET PO PRN ×3 (03:09→14:37)
[2017-11-10] MEDS: NICOTINE POLACRILEX 2 MG LOZENGE PO PRN ×3 (03:09→14:37)
[2017-11-10 08:27] LABS: ANION GAP 8 mmol/L (8-16); CALCIUM, TOTAL 8.6 mg/dL (8.8-10.5); CARBON DIOXIDE 28 mmol/L (22-29); CHLORIDE 92 mmol/L (98-107); CREATININE 0.62 mg/dL (0.60-1.30); GLOMERULAR FILTR. RATE CALC > 60 mL/min (>60); GLUCOSE,RANDOM 80 mg/dL (70-110); POTASSIUM 4.4 mmol/L (3.5-5.1); SODIUM SERUM 128 mmol/L (136-145); UREA NITROGEN, BLOOD 7 mg/dL (7-18)
[2017-11-10 08:31] VITALS: BP 110/71
[2017-11-10] MEDS: SODIUM CHLORIDE 1 GM TABLET PO SCH (08:58)
[2017-11-10] MEDS: CHOLECALCIFEROL (VIT D3) 1,000 UNITS TABLET PO SCH (08:58)
[2017-11-10] MEDS: FLUoxetine HCL 20 MG CAPSULE PO SCH (08:59)
[2017-11-10 16:09] VITALS: BP 117/77
[2017-11-10] MEDS: PALIPERIDONE 3 MG ER TABLET PO SCH (20:29)
[2017-11-11 04:10] VITALS: BP 111/70
[2017-11-11] MEDS: LORazepam 2 MG TABLET PO PRN ×3 (04:11→12:55)
[2017-11-11] MEDS: NICOTINE POLACRILEX 2 MG LOZENGE PO PRN ×3 (04:11→12:55)
[2017-11-11 08:09] VITALS: BP 122/82
[2017-11-11] MEDS: FLUoxetine HCL 20 MG CAPSULE PO SCH (08:16)
[2017-11-11] MEDS: CHOLECALCIFEROL (VIT D3) 1,000 UNITS TABLET PO SCH (08:16)
[2017-11-11] MEDS: SODIUM CHLORIDE 1 GM TABLET PO SCH ×3 (10:25→17:27)
[2017-11-11 16:00] VITALS: BP 106/63
[2017-11-11] MEDS: PALIPERIDONE 3 MG ER TABLET PO SCH (20:29)
[2017-11-12 03:11] VITALS: BP 114/62
[2017-11-12] MEDS: LORazepam 2 MG TABLET PO PRN ×3 (03:13→13:06)
[2017-11-12] MEDS: NICOTINE POLACRILEX 2 MG LOZENGE PO PRN ×3 (03:14→13:06)
[2017-11-12 08:10] VITALS: BP 112/64
[2017-11-12 08:43] LABS: BASOPHILS % (AUTO) 0.6 % (0.0-2.0); EOSINOPHILS % (AUTO) 2.1 % (1.0-6.0); HEMATOCRIT 43.1 % (41-53); LYMPHOCYTES # (AUTO) 1.9 K/uL (1.0-4.8); LYMPHOCYTES % (AUTO) 36.6 % (22.0-44.0); MEAN CORPUSCULAR HEMOGLOBIN 28.7 pg (26.0-34.0); MEAN CORPUSCULAR HGB CONC 34.8 G/dL (31.0-37.0); MEAN CORPUSCULAR VOLUME 82 fL (80-100); MONOCYTES # (AUTO) 0.3 K/uL (0.1-1.0); MONOCYTES % (AUTO) 6.3 % (2.0-9.0); NEUTROPHILS # (AUTO) 2.9 K/uL (1.8-7.7); NEUTROPHILS % (AUTO) 54.4 % (40.0-70.0); PLATELET COUNT (AUTO) 221 K/uL (150-450); RED BLOOD CELL COUNT(AUTO) 5.23 MIL/uL (4.50-5.90); RED CELL DISTRIBUTION WIDTH 14.3 % (11.5-14.5)
[2017-11-12] MEDS: CHOLECALCIFEROL (VIT D3) 1,000 UNITS TABLET PO SCH (08:48)
[2017-11-12] MEDS: FLUoxetine HCL 20 MG CAPSULE PO SCH (08:48)
[2017-11-12] MEDS: SODIUM CHLORIDE 1 GM TABLET PO SCH ×2 (08:48→12:31)
[2017-11-12 10:06] LABS: ALANINE AMINOTRANSFERASE 22 U/L (12-78); ALBUMIN 4.2 g/dL (3.4-5.0); ALKALINE PHOSPHATASE 54 U/L (46-116); ANION GAP 6 mmol/L (8-16); ASPARTATE AMINOTRANSFERASE 13 U/L (15-37); BILIRUBIN,TOTAL 0.7 mg/dL (0.1-1.0); CARBON DIOXIDE 31 mmol/L (22-29); CHLORIDE 102 mmol/L (98-107); CREATININE 0.79 mg/dL (0.60-1.30); GLOMERULAR FILTR. RATE CALC > 60 mL/min (>60); GLUCOSE,RANDOM 75 mg/dL (70-110); PHOSPHORUS 4.7 mg/dL (2.5-4.9); POTASSIUM 4.2 mmol/L (3.5-5.1); SODIUM SERUM 139 mmol/L (136-145); TOTAL PROTEIN, SERUM 7.6 g/dL (6.4-8.2); UREA NITROGEN, BLOOD 8 mg/dL (7-18)
[2017-11-12 14:25] VITALS: BP 110/66
[2017-11-12] MEDS: ACETAMINOPHEN 325 MG TABLET PO PRN (14:25)
[2017-11-12 16:00] VITALS: BP 105/65
[2017-11-12] MEDS: PALIPERIDONE 3 MG ER TABLET PO SCH (21:09)
[2017-11-13] MEDS: LORazepam 2 MG TABLET PO PRN ×4 (04:04→20:30)
[2017-11-13 04:06] VITALS: BP 110/62
[2017-11-13] MEDS: NICOTINE POLACRILEX 2 MG LOZENGE PO PRN ×2 (04:31→20:31)
[2017-11-13 08:09] VITALS: BP 116/62
[2017-11-13] MEDS: CHOLECALCIFEROL (VIT D3) 1,000 UNITS TABLET PO SCH (08:32)
[2017-11-13] MEDS: FLUoxetine HCL 20 MG CAPSULE PO SCH (08:32)
[2017-11-13 08:38] LABS: BAND NEUTROPHILS % (MANUAL) 0 % (0-5)
[2017-11-13 08:44] LABS: HEMATOCRIT 41.9 % (41-53); HEMOGLOBIN 14.1 g/dL (13.5-17.5); MEAN CORPUSCULAR HEMOGLOBIN 28.4 pg (26.0-34.0); MEAN CORPUSCULAR HGB CONC 33.6 G/dL (31.0-37.0); MEAN CORPUSCULAR VOLUME 84 fL (80-100); PLATELET COUNT (AUTO) 219 K/uL (150-450); RED BLOOD CELL COUNT(AUTO) 4.97 MIL/uL (4.50-5.90); RED CELL DISTRIBUTION WIDTH 14.7 % (11.5-14.5)
[2017-11-13 09:10] LABS: ANION GAP 9 mmol/L (8-16); CALCIUM, TOTAL 8.9 mg/dL (8.8-10.5); CARBON DIOXIDE 30 mmol/L (22-29); CHLORIDE 101 mmol/L (98-107); GLOMERULAR FILTR. RATE CALC > 60 mL/min (>60); GLUCOSE,RANDOM 102 mg/dL (70-110); PHOSPHORUS 4.8 mg/dL (2.5-4.9); POTASSIUM 4.1 mmol/L (3.5-5.1); SODIUM SERUM 140 mmol/L (136-145); UREA NITROGEN, BLOOD 14 mg/dL (7-18)
[2017-11-13 09:46] LABS: APPEARANCE,URINE CLEAR (CLEAR); BILIRUBIN,URINE NEGATIVE (NEGATIVE); GLUCOSE, URINE (UA) NEGATIVE (NEGATIVE); KETONES,URINE NEGATIVE (NEGATIVE); LEUKOCYTE ESTERASE ,URINE NEGATIVE (NEGATIVE); NITRATE,URINE NEGATIVE (NEGATIVE); OCCULT BLOOD,URINE NEGATIVE (NEGATIVE); PH,URINE 6.5 (5.0-8.0); PROTEIN,URINE NEGATIVE (NEGATIVE); UROBILINOGEN,URINE 0.2 mg/dL (<=1.0)
[2017-11-13 10:17] LABS: EOSINOPHILS % (MANUAL) 4 % (1-6); LYMPHOCYTES % (MANUAL) 33 % (22-44); MONOCYTES % (MANUAL) 8 % (2-9); SEGMENTED NEUTROPHILS % 55 % (40-70)
[2017-11-13 16:00] VITALS: BP 104/72
[2017-11-13] MEDS: PALIPERIDONE 3 MG ER TABLET PO SCH (20:30)
[2017-11-14 00:04] VITALS: BP 104/63
[2017-11-14] MEDS: LORazepam 2 MG TABLET PO PRN ×2 (04:42→11:38)
[2017-11-14] MEDS: NICOTINE POLACRILEX 2 MG LOZENGE PO PRN ×2 (04:42→11:38)
[2017-11-14 08:35] VITALS: BP 103/58
[2017-11-14] MEDS: FLUoxetine HCL 20 MG CAPSULE PO SCH (09:24)
[2017-11-14] MEDS: CHOLECALCIFEROL (VIT D3) 1,000 UNITS TABLET PO SCH (09:24)
[2017-11-14 16:14] VITALS: BP 105/69
[2017-11-14] MEDS: PALIPERIDONE 3 MG ER TABLET PO SCH (20:15)
[2017-11-15 01:20] VITALS: BP 108/70
[2017-11-15] MEDS: NICOTINE POLACRILEX 2 MG LOZENGE PO PRN ×3 (01:21→13:38)
[2017-11-15] MEDS: LORazepam 2 MG TABLET PO PRN ×3 (01:21→13:38)
[2017-11-15 08:09] VITALS: BP 130/61
[2017-11-15] MEDS: CHOLECALCIFEROL (VIT D3) 1,000 UNITS TABLET PO SCH (08:14)
[2017-11-15] MEDS: FLUoxetine HCL 20 MG CAPSULE PO SCH (08:15)
[2017-11-15 16:20] VITALS: BP 112/62
[2017-11-15] MEDS: PALIPERIDONE 3 MG ER TABLET PO SCH (20:07)
[2017-11-16] MEDS: ZOLPIDEM TARTRATE 10 MG TABLET PO PRN (02:03)
[2017-11-16] MEDS: LORazepam 2 MG TABLET PO PRN ×4 (02:03→16:52)
[2017-11-16 06:29] VITALS: BP 109/78
[2017-11-16 08:09] VITALS: BP 112/65
[2017-11-16] MEDS: FLUoxetine HCL 20 MG CAPSULE PO SCH (08:15)
[2017-11-16] MEDS: CHOLECALCIFEROL (VIT D3) 1,000 UNITS TABLET PO SCH (08:15)
[2017-11-16] MEDS: NICOTINE POLACRILEX 2 MG LOZENGE PO PRN ×2 (08:15→12:25)
[2017-11-16 17:09] VITALS: BP 108/72
[2017-11-16] MEDS: PALIPERIDONE 3 MG ER TABLET PO SCH (20:19)
[2017-11-17 01:16] VITALS: BP 113/88
[2017-11-17] MEDS: LORazepam 2 MG TABLET PO PRN ×2 (05:30→20:48)
[2017-11-17] MEDS: NICOTINE POLACRILEX 2 MG LOZENGE PO PRN ×2 (05:45→20:48)
[2017-11-17 08:10] VITALS: BP 111/61
[2017-11-17] MEDS: FLUoxetine HCL 20 MG CAPSULE PO SCH (08:29)
[2017-11-17] MEDS: CHOLECALCIFEROL (VIT D3) 1,000 UNITS TABLET PO SCH (08:29)
[2017-11-17 16:29] VITALS: BP 110/65
[2017-11-17] MEDS: PALIPERIDONE 3 MG ER TABLET PO SCH (20:43)
[2017-11-18 05:00] VITALS: BP 116/68
[2017-11-18] MEDS: LORazepam 2 MG TABLET PO PRN ×3 (08:10→16:49)
[2017-11-18] MEDS: CHOLECALCIFEROL (VIT D3) 1,000 UNITS TABLET PO SCH (08:10)
[2017-11-18] MEDS: FLUoxetine HCL 20 MG CAPSULE PO SCH (08:10)
[2017-11-18 08:14] VITALS: BP 111/65
[2017-11-18 16:15] VITALS: BP 107/74
[2017-11-18] MEDS: PALIPERIDONE 3 MG ER TABLET PO SCH (20:30)
[2017-11-18] MEDS: ZOLPIDEM TARTRATE 10 MG TABLET PO PRN (20:30)
[2017-11-19 02:12] VITALS: BP 109/69
[2017-11-19] MEDS: NICOTINE POLACRILEX 2 MG LOZENGE PO PRN ×4 (04:10→21:25)
[2017-11-19] MEDS: LORazepam 2 MG TABLET PO PRN ×4 (04:33→21:25)
[2017-11-19 08:13] VITALS: BP 108/65
[2017-11-19] MEDS: CHOLECALCIFEROL (VIT D3) 1,000 UNITS TABLET PO SCH (08:52)
[2017-11-19] MEDS: FLUoxetine HCL 20 MG CAPSULE PO SCH (08:52)
[2017-11-19 16:25] VITALS: BP 114/70
[2017-11-19] MEDS: PALIPERIDONE 3 MG ER TABLET PO SCH (20:31)
[2017-11-19] MEDS: ZOLPIDEM TARTRATE 10 MG TABLET PO PRN (21:25)
[2017-11-20] MEDS: LORazepam 2 MG TABLET PO PRN ×3 (05:12→21:50)
[2017-11-20 05:28] VITALS: BP 118/68
[2017-11-20 08:17] VITALS: BP 111/60
[2017-11-20] MEDS: FLUoxetine HCL 20 MG CAPSULE PO SCH (09:15)
[2017-11-20] MEDS: CHOLECALCIFEROL (VIT D3) 1,000 UNITS TABLET PO SCH (09:15)
[2017-11-20] MEDS: NICOTINE POLACRILEX 2 MG LOZENGE PO PRN (12:52)
[2017-11-20 16:00] VITALS: BP 110/71
[2017-11-20] MEDS: PALIPERIDONE 3 MG ER TABLET PO SCH (20:32)
[2017-11-20] MEDS: ZOLPIDEM TARTRATE 10 MG TABLET PO PRN (21:50)
[2017-11-21 04:18] VITALS: BP 109/69
[2017-11-21] MEDS: NICOTINE POLACRILEX 2 MG LOZENGE PO PRN ×4 (04:31→20:56)
[2017-11-21] MEDS: LORazepam 2 MG TABLET PO PRN ×3 (04:31→20:56)
[2017-11-21] MEDS: CHOLECALCIFEROL (VIT D3) 1,000 UNITS TABLET PO SCH (08:13)
[2017-11-21] MEDS: FLUoxetine HCL 20 MG CAPSULE PO SCH (08:13)
[2017-11-21 08:15] VITALS: BP 108/63
[2017-11-21 16:46] VITALS: BP 101/63
[2017-11-21] MEDS: ZOLPIDEM TARTRATE 10 MG TABLET PO PRN (20:56)
[2017-11-21] MEDS: PALIPERIDONE 3 MG ER TABLET PO SCH (20:56)
[2017-11-22 03:42] VITALS: BP 112/73
[2017-11-22] MEDS: LORazepam 2 MG TABLET PO PRN ×4 (03:45→22:22)
[2017-11-22] MEDS: FLUoxetine HCL 20 MG CAPSULE PO SCH (08:31)
[2017-11-22] MEDS: CHOLECALCIFEROL (VIT D3) 1,000 UNITS TABLET PO SCH (08:32)
[2017-11-22 08:33] VITALS: BP 100/57
[2017-11-22] MEDS: NICOTINE POLACRILEX 2 MG LOZENGE PO PRN ×2 (12:35→16:10)
[2017-11-22 16:05] VITALS: BP 114/68
[2017-11-22] MEDS: PALIPERIDONE 3 MG ER TABLET PO SCH (20:09)
[2017-11-23 05:50] VITALS: BP 114/77
[2017-11-23] MEDS: LORazepam 2 MG TABLET PO PRN ×3 (05:53→21:07)
[2017-11-23] MEDS: NICOTINE POLACRILEX 2 MG LOZENGE PO PRN ×3 (05:54→21:07)
[2017-11-23 08:09] VITALS: BP 122/75
[2017-11-23] MEDS: CHOLECALCIFEROL (VIT D3) 1,000 UNITS TABLET PO SCH (08:54)
[2017-11-23] MEDS: FLUoxetine HCL 20 MG CAPSULE PO SCH (08:54)
[2017-11-23 16:06] VITALS: BP 120/94
[2017-11-23] MEDS: PALIPERIDONE 3 MG ER TABLET PO SCH (20:26)
[2017-11-24 04:27] VITALS: BP 108/63
[2017-11-24] MEDS: LORazepam 2 MG TABLET PO PRN ×3 (07:02→23:57)
[2017-11-24] MEDS: NICOTINE POLACRILEX 2 MG LOZENGE PO PRN ×2 (08:51→15:50)
[2017-11-24] MEDS: CHOLECALCIFEROL (VIT D3) 1,000 UNITS TABLET PO SCH (08:51)
[2017-11-24] MEDS: FLUoxetine HCL 20 MG CAPSULE PO SCH (08:51)
[2017-11-24 08:53] VITALS: BP 107/86
[2017-11-24 16:09] VITALS: BP 106/65
[2017-11-24] MEDS: PALIPERIDONE 3 MG ER TABLET PO SCH (20:34)
[2017-11-24 23:50] VITALS: BP 108/77
[2017-11-25] MEDS: NICOTINE POLACRILEX 2 MG LOZENGE PO PRN ×3 (00:13→12:04)
[2017-11-25 05:55] VITALS: BP 110/68
[2017-11-25 08:31] VITALS: BP 108/69
[2017-11-25] MEDS: CHOLECALCIFEROL (VIT D3) 1,000 UNITS TABLET PO SCH (08:32)
[2017-11-25] MEDS: FLUoxetine HCL 20 MG CAPSULE PO SCH (08:32)
[2017-11-25] MEDS: LORazepam 2 MG TABLET PO PRN (16:25)
[2017-11-25 16:29] VITALS: BP 132/77
[2017-11-25] MEDS: PALIPERIDONE 3 MG ER TABLET PO SCH (20:14)
[2017-11-25] MEDS: ZOLPIDEM TARTRATE 10 MG TABLET PO PRN (20:16)
[2017-11-26] MEDS: LORazepam 2 MG TABLET PO PRN ×4 (01:24→16:06)
[2017-11-26] MEDS: NICOTINE POLACRILEX 2 MG LOZENGE PO PRN ×2 (01:24→16:07)
[2017-11-26 01:43] VITALS: BP 120/81
[2017-11-26 08:55] VITALS: BP 125/93
[2017-11-26] MEDS: CHOLECALCIFEROL (VIT D3) 1,000 UNITS TABLET PO SCH (09:41)
[2017-11-26] MEDS: FLUoxetine HCL 20 MG CAPSULE PO SCH (09:41)
[2017-11-26 16:12] VITALS: BP 118/83
[2017-11-26] MEDS: PALIPERIDONE 3 MG ER TABLET PO SCH (20:19)
[2017-11-27 00:53] VITALS: BP 102/62
[2017-11-27] MEDS: LORazepam 2 MG TABLET PO PRN ×3 (04:28→16:49)
[2017-11-27] MEDS: NICOTINE POLACRILEX 2 MG LOZENGE PO PRN ×4 (04:34→17:52)
[2017-11-27] MEDS: CHOLECALCIFEROL (VIT D3) 1,000 UNITS TABLET PO SCH (08:17)
[2017-11-27] MEDS: FLUoxetine HCL 20 MG CAPSULE PO SCH (08:17)
[2017-11-27 08:38] VITALS: BP 109/74
[2017-11-27 16:05] VITALS: BP 115/73
[2017-11-27] MEDS: PALIPERIDONE 3 MG ER TABLET PO SCH (20:03)
[2017-11-28 05:35] VITALS: BP 110/75
[2017-11-28] MEDS: LORazepam 2 MG TABLET PO PRN ×3 (05:39→18:41)
[2017-11-28] MEDS: NICOTINE POLACRILEX 2 MG LOZENGE PO PRN ×4 (05:39→20:26)
[2017-11-28] MEDS: FLUoxetine HCL 20 MG CAPSULE PO SCH (08:13)
[2017-11-28] MEDS: CHOLECALCIFEROL (VIT D3) 1,000 UNITS TABLET PO SCH (08:13)
[2017-11-28 08:43] VITALS: BP 126/73
[2017-11-28 16:12] VITALS: BP 129/86
[2017-11-28] MEDS: PALIPERIDONE 3 MG ER TABLET PO SCH (20:23)
[2017-11-29 02:48] VITALS: BP 112/72
[2017-11-29] MEDS: NICOTINE POLACRILEX 2 MG LOZENGE PO PRN ×3 (06:41→14:03)
[2017-11-29] MEDS: LORazepam 2 MG TABLET PO PRN ×3 (06:41→15:57)
[2017-11-29 08:23] VITALS: BP 120/82
[2017-11-29] MEDS: FLUoxetine HCL 20 MG CAPSULE PO SCH (09:20)
[2017-11-29] MEDS: CHOLECALCIFEROL (VIT D3) 1,000 UNITS TABLET PO SCH (09:20)
[2017-11-29 16:36] VITALS: BP 121/72
[2017-11-29] MEDS: PALIPERIDONE 3 MG ER TABLET PO SCH (20:20)
[2017-11-30 04:40] VITALS: BP 110/68
[2017-11-30] MEDS: LORazepam 2 MG TABLET PO PRN ×3 (04:44→16:55)
[2017-11-30 08:09] VITALS: BP 113/72
[2017-11-30] MEDS: CHOLECALCIFEROL (VIT D3) 1,000 UNITS TABLET PO SCH (08:32)
[2017-11-30] MEDS: NICOTINE POLACRILEX 2 MG LOZENGE PO PRN ×3 (08:32→16:03)
[2017-11-30] MEDS: FLUoxetine HCL 20 MG CAPSULE PO SCH (08:32)
[2017-11-30] MEDS: HALOPERIDOL 5 MG TABLET PO PRN (13:09)
[2017-11-30 16:11] VITALS: BP 119/77
[2017-11-30] MEDS: PALIPERIDONE 3 MG ER TABLET PO SCH (20:46)
[2017-12-01 06:09] VITALS: BP 121/68
[2017-12-01] MEDS: LORazepam 2 MG TABLET PO PRN ×2 (06:57→13:11)
[2017-12-01] MEDS: CHOLECALCIFEROL (VIT D3) 1,000 UNITS TABLET PO SCH (08:34)
[2017-12-01] MEDS: FLUoxetine HCL 20 MG CAPSULE PO SCH (08:35)
[2017-12-01] MEDS: NICOTINE POLACRILEX 2 MG LOZENGE PO PRN ×3 (08:35→16:19)
[2017-12-01 09:05] VITALS: BP 119/73
[2017-12-01] MEDS: HALOPERIDOL 5 MG TABLET PO PRN (13:11)
[2017-12-01 16:19] VITALS: BP 115/69
[2017-12-01] MEDS: PALIPERIDONE 3 MG ER TABLET PO SCH (20:28)
[2017-12-02 04:37] VITALS: BP 110/68
[2017-12-02] MEDS: NICOTINE POLACRILEX 2 MG LOZENGE PO PRN ×3 (04:47→12:31)
[2017-12-02] MEDS: LORazepam 2 MG TABLET PO PRN (04:47)
[2017-12-02] MEDS: CHOLECALCIFEROL (VIT D3) 1,000 UNITS TABLET PO SCH (08:19)
[2017-12-02] MEDS: FLUoxetine HCL 20 MG CAPSULE PO SCH (08:19)
[2017-12-02 08:30] VITALS: BP 112/77
[2017-12-02 14:23] VITALS: BP 123/87
[2017-12-02] MEDS: ACETAMINOPHEN 325 MG TABLET PO PRN (14:23)
[2017-12-02] MEDS: HALOPERIDOL 5 MG TABLET PO PRN (14:31)
[2017-12-02 16:07] VITALS: BP 123/82
[2017-12-02] MEDS: IBUPROFEN 600 MG TABLET PO PRN (16:46)
[2017-12-02] MEDS: PALIPERIDONE 3 MG ER TABLET PO SCH (20:13)
[2017-12-03 00:01] VITALS: BP 116/81
[2017-12-03] MEDS: LORazepam 2 MG TABLET PO PRN ×3 (00:04→16:30)
[2017-12-03] MEDS: NICOTINE POLACRILEX 2 MG LOZENGE PO PRN ×4 (00:05→16:00)
[2017-12-03 08:36] VITALS: BP 120/75
[2017-12-03] MEDS: CHOLECALCIFEROL (VIT D3) 1,000 UNITS TABLET PO SCH (09:14)
[2017-12-03] MEDS: FLUoxetine HCL 20 MG CAPSULE PO SCH (09:15)
[2017-12-03] MEDS: HALOPERIDOL 5 MG TABLET PO PRN (12:17)
[2017-12-03 19:15] VITALS: BP 118/73
[2017-12-03] MEDS: PALIPERIDONE 3 MG ER TABLET PO SCH (20:26)
[2017-12-04 05:53] VITALS: BP 120/81
[2017-12-04] MEDS: LORazepam 2 MG TABLET PO PRN ×3 (05:56→21:00)
[2017-12-04 08:00] VITALS: BP 127/89
[2017-12-04] MEDS: FLUoxetine HCL 20 MG CAPSULE PO SCH (09:05)
[2017-12-04] MEDS: CHOLECALCIFEROL (VIT D3) 1,000 UNITS TABLET PO SCH (09:05)
[2017-12-04] MEDS: NICOTINE POLACRILEX 2 MG LOZENGE PO PRN ×3 (10:37→21:00)
[2017-12-04 14:08] VITALS: BP 118/82
[2017-12-04] MEDS: IBUPROFEN 600 MG TABLET PO PRN (14:08)
[2017-12-04 16:11] VITALS: BP 134/83
[2017-12-04] MEDS: PALIPERIDONE 3 MG ER TABLET PO SCH (20:43)
[2017-12-05 05:20] VITALS: BP 110/68
[2017-12-05] MEDS: LORazepam 2 MG TABLET PO PRN ×3 (05:46→16:25)
[2017-12-05] MEDS: NICOTINE POLACRILEX 2 MG LOZENGE PO PRN ×3 (08:18→14:46)
[2017-12-05] MEDS: FLUoxetine HCL 20 MG CAPSULE PO SCH (08:18)
[2017-12-05] MEDS: CHOLECALCIFEROL (VIT D3) 1,000 UNITS TABLET PO SCH (08:18)
[2017-12-05 08:31] VITALS: BP 122/87
[2017-12-05 12:14] VITALS: BP 120/86
[2017-12-05] MEDS: HALOPERIDOL 5 MG TABLET PO PRN (12:14)
[2017-12-05] MEDS: IBUPROFEN 600 MG TABLET PO PRN (12:14)
[2017-12-05 16:14] VITALS: BP 111/76
[2017-12-05] MEDS: PALIPERIDONE 3 MG ER TABLET PO SCH (20:18)
[2017-12-06 05:35] VITALS: BP 122/64
[2017-12-06] MEDS: LORazepam 2 MG TABLET PO PRN ×3 (05:37→14:35)
[2017-12-06] MEDS: NICOTINE POLACRILEX 2 MG LOZENGE PO PRN ×4 (05:37→17:05)
[2017-12-06] MEDS: FLUoxetine HCL 20 MG CAPSULE PO SCH (08:32)
[2017-12-06] MEDS: CHOLECALCIFEROL (VIT D3) 1,000 UNITS TABLET PO SCH (08:32)
[2017-12-06 08:34] VITALS: BP 115/82
[2017-12-06] MEDS: HALOPERIDOL 5 MG TABLET PO PRN (12:32)
[2017-12-06 16:14] VITALS: BP 128/79
[2017-12-06] MEDS: PALIPERIDONE 3 MG ER TABLET PO SCH (20:12)
[2017-12-07 02:05] VITALS: BP 108/67
[2017-12-07] MEDS: LORazepam 2 MG TABLET PO PRN ×3 (02:06→16:06)
[2017-12-07] MEDS: NICOTINE POLACRILEX 2 MG LOZENGE PO PRN ×5 (02:07→16:07)
[2017-12-07 08:42] VITALS: BP 125/73
[2017-12-07] MEDS: FLUoxetine HCL 20 MG CAPSULE PO SCH (08:55)
[2017-12-07] MEDS: CHOLECALCIFEROL (VIT D3) 1,000 UNITS TABLET PO SCH (08:55)
[2017-12-07 16:31] VITALS: BP 112/75
[2017-12-07] MEDS: PALIPERIDONE 3 MG ER TABLET PO SCH (20:25)
[2017-12-08 04:40] VITALS: BP 124/80
[2017-12-08] MEDS: NICOTINE POLACRILEX 2 MG LOZENGE PO PRN ×3 (04:43→12:41)
[2017-12-08] MEDS: LORazepam 2 MG TABLET PO PRN ×3 (04:43→13:42)
[2017-12-08] MEDS: CHOLECALCIFEROL (VIT D3) 1,000 UNITS TABLET PO SCH (08:44)
[2017-12-08] MEDS: FLUoxetine HCL 20 MG CAPSULE PO SCH (08:44)
[2017-12-08 10:12] VITALS: BP 106/73
[2017-12-08 14:18] VITALS: BP 116/75
[2017-12-08] MEDS: IBUPROFEN 600 MG TABLET PO PRN (14:18)
[2017-12-08 16:50] VITALS: BP 125/80
[2017-12-08] MEDS: PALIPERIDONE 3 MG ER TABLET PO SCH (20:57)
[2017-12-09 00:45] VITALS: BP 105/70
[2017-12-09] MEDS: LORazepam 2 MG TABLET PO PRN ×3 (01:04→12:57)
[2017-12-09] MEDS: CHOLECALCIFEROL (VIT D3) 1,000 UNITS TABLET PO SCH (08:24)
[2017-12-09] MEDS: FLUoxetine HCL 20 MG CAPSULE PO SCH (08:24)
[2017-12-09] MEDS: NICOTINE POLACRILEX 2 MG LOZENGE PO PRN ×2 (08:29→13:43)
[2017-12-09 08:45] VITALS: BP 106/62
[2017-12-09] MEDS: HALOPERIDOL 5 MG TABLET PO PRN (13:30)
[2017-12-09 16:26] VITALS: BP 120/81
[2017-12-09] MEDS: PALIPERIDONE 3 MG ER TABLET PO SCH (20:37)
[2017-12-10] MEDS: LORazepam 2 MG TABLET PO PRN ×3 (04:52→21:27)
[2017-12-10] MEDS: NICOTINE POLACRILEX 2 MG LOZENGE PO PRN ×4 (04:52→21:17)
[2017-12-10 07:08] VITALS: BP 117/86
[2017-12-10 08:11] VITALS: BP 117/79
[2017-12-10] MEDS: FLUoxetine HCL 20 MG CAPSULE PO SCH (09:33)
[2017-12-10] MEDS: CHOLECALCIFEROL (VIT D3) 1,000 UNITS TABLET PO SCH (09:33)
[2017-12-10 16:48] VITALS: BP 115/62
[2017-12-10] MEDS: PALIPERIDONE 3 MG ER TABLET PO SCH (21:15)
[2017-12-11 01:42] VITALS: BP 106/67
[2017-12-11] MEDS: NICOTINE POLACRILEX 2 MG LOZENGE PO PRN ×4 (02:52→14:46)
[2017-12-11] MEDS: LORazepam 2 MG TABLET PO PRN ×3 (04:10→14:45)
[2017-12-11 08:11] VITALS: BP 120/81
[2017-12-11] MEDS: CHOLECALCIFEROL (VIT D3) 1,000 UNITS TABLET PO SCH (09:06)
[2017-12-11] MEDS: FLUoxetine HCL 20 MG CAPSULE PO SCH (09:06)
[2017-12-11 16:11] VITALS: BP 127/80
[2017-12-11] MEDS: HALOPERIDOL 5 MG TABLET PO PRN (17:13)
[2017-12-11] MEDS: ZOLPIDEM TARTRATE 10 MG TABLET PO PRN (21:19)
[2017-12-11] MEDS: PALIPERIDONE 3 MG ER TABLET PO SCH (21:19)
[2017-12-12 06:51] VITALS: BP 117/93
[2017-12-12] MEDS: NICOTINE POLACRILEX 2 MG LOZENGE PO PRN ×3 (07:00→23:22)
[2017-12-12] MEDS: LORazepam 2 MG TABLET PO PRN ×3 (07:00→23:20)
[2017-12-12 08:34] VITALS: BP 138/84
[2017-12-12] MEDS: FLUoxetine HCL 20 MG CAPSULE PO SCH (09:34)
[2017-12-12] MEDS: CHOLECALCIFEROL (VIT D3) 1,000 UNITS TABLET PO SCH (09:34)
[2017-12-12] MEDS: HALOPERIDOL 5 MG TABLET PO PRN (10:47)
[2017-12-12 16:25] VITALS: BP 140/97
[2017-12-12] MEDS: PALIPERIDONE 3 MG ER TABLET PO SCH (21:00)
[2017-12-13 01:20] VITALS: BP 133/84
[2017-12-13 08:21] VITALS: BP 131/90
[2017-12-13] MEDS: NICOTINE POLACRILEX 2 MG LOZENGE PO PRN ×3 (09:07→20:16)
[2017-12-13] MEDS: CHOLECALCIFEROL (VIT D3) 1,000 UNITS TABLET PO SCH (09:08)
[2017-12-13] MEDS: FLUoxetine HCL 20 MG CAPSULE PO SCH (09:08)
[2017-12-13] MEDS: LORazepam 2 MG TABLET PO PRN ×3 (09:08→20:16)
[2017-12-13 12:49] VITALS: BP 116/66
[2017-12-13] MEDS: HALOPERIDOL 5 MG TABLET PO PRN (12:52)
[2017-12-13 16:11] VITALS: BP 127/81
[2017-12-13] MEDS: PALIPERIDONE 3 MG ER TABLET PO SCH (20:15)
[2017-12-14] VITALS: BP 101/61
[2017-12-14 05:55] VITALS: BP 118/88
[2017-12-14] MEDS: LORazepam 2 MG TABLET PO PRN ×3 (06:00→22:58)
[2017-12-14 08:35] VITALS: BP 125/81
[2017-12-14] MEDS: CHOLECALCIFEROL (VIT D3) 1,000 UNITS TABLET PO SCH (09:43)
[2017-12-14] MEDS: FLUoxetine HCL 20 MG CAPSULE PO SCH (09:44)
[2017-12-14] MEDS: NICOTINE POLACRILEX 2 MG LOZENGE PO PRN ×2 (12:53→22:58)
[2017-12-14 16:32] VITALS: BP 125/79
[2017-12-14] MEDS: PALIPERIDONE 3 MG ER TABLET PO SCH (20:53)
[2017-12-15 05:13] VITALS: BP 114/70
[2017-12-15] MEDS: LORazepam 2 MG TABLET PO PRN ×3 (06:24→17:32)
[2017-12-15 08:56] VITALS: BP 128/74
[2017-12-15] MEDS: FLUoxetine HCL 20 MG CAPSULE PO SCH (09:01)
[2017-12-15] MEDS: CHOLECALCIFEROL (VIT D3) 1,000 UNITS TABLET PO SCH (09:01)
[2017-12-15] MEDS: NICOTINE POLACRILEX 2 MG LOZENGE PO PRN ×3 (09:03→17:32)
[2017-12-15 12:15] VITALS: BP 115/73
[2017-12-15 16:13] VITALS: BP 114/82
[2017-12-15] MEDS: PALIPERIDONE 3 MG ER TABLET PO SCH (20:18)
[2017-12-16] MEDS: NICOTINE POLACRILEX 2 MG LOZENGE PO PRN ×3 (05:14→13:40)
[2017-12-16] MEDS: LORazepam 2 MG TABLET PO PRN ×3 (05:14→14:06)
[2017-12-16 06:00] VITALS: BP 110/68
[2017-12-16 08:08] VITALS: BP 125/86
[2017-12-16] MEDS: FLUoxetine HCL 20 MG CAPSULE PO SCH (08:13)
[2017-12-16] MEDS: CHOLECALCIFEROL (VIT D3) 1,000 UNITS TABLET PO SCH (08:13)
[2017-12-16 08:19] LABS: BASOPHILS % (AUTO) 0.3 % (0.0-2.0); EOSINOPHILS % (AUTO) 1.9 % (1.0-6.0); HEMATOCRIT 38.8 % (41-53); HEMOGLOBIN 13.3 g/dL (13.5-17.5); LYMPHOCYTES # (AUTO) 1.9 K/uL (1.0-4.8); MEAN CORPUSCULAR HEMOGLOBIN 28.5 pg (26.0-34.0); MEAN CORPUSCULAR HGB CONC 34.4 G/dL (31.0-37.0); MEAN CORPUSCULAR VOLUME 83 fL (80-100); MONOCYTES # (AUTO) 0.7 K/uL (0.1-1.0); NEUTROPHILS # (AUTO) 4.8 K/uL (1.8-7.7); NEUTROPHILS % (AUTO) 63.8 % (40.0-70.0); PLATELET COUNT (AUTO) 221 K/uL (150-450); RED BLOOD CELL COUNT(AUTO) 4.68 MIL/uL (4.50-5.90); RED CELL DISTRIBUTION WIDTH 15.8 % (11.5-14.5)
[2017-12-16 08:40] LABS: ALANINE AMINOTRANSFERASE 29 U/L (12-78); ALBUMIN 4.2 g/dL (3.4-5.0); ALKALINE PHOSPHATASE 53 U/L (46-116); ANION GAP 5 mmol/L (8-16); ASPARTATE AMINOTRANSFERASE 15 U/L (15-37); BILIRUBIN,TOTAL 0.5 mg/dL (0.1-1.0); CALCIUM, TOTAL 8.7 mg/dL (8.8-10.5); CARBON DIOXIDE 29 mmol/L (22-29); CHLORIDE 97 mmol/L (98-107); GLOMERULAR FILTR. RATE CALC > 60 mL/min (>60); GLUCOSE,RANDOM 88 mg/dL (70-110); POTASSIUM 4.5 mmol/L (3.5-5.1); SODIUM SERUM 131 mmol/L (136-145); TOTAL PROTEIN, SERUM 7.6 g/dL (6.4-8.2); UREA NITROGEN, BLOOD 11 mg/dL (7-18)
[2017-12-16 17:09] VITALS: BP 120/84
[2017-12-16] MEDS: PALIPERIDONE 3 MG ER TABLET PO SCH (20:46)
[2017-12-17 00:02] VITALS: BP 116/72
[2017-12-17] MEDS: ZOLPIDEM TARTRATE 10 MG TABLET PO PRN (00:09)
[2017-12-17 00:31] VITALS: BP 116/75
[2017-12-17] MEDS: LORazepam 2 MG TABLET PO PRN ×4 (01:01→15:54)
[2017-12-17] MEDS: NICOTINE POLACRILEX 2 MG LOZENGE PO PRN ×4 (01:02→16:25)
[2017-12-17 06:27] VITALS: BP 117/78
[2017-12-17 08:13] VITALS: BP 122/79
[2017-12-17] MEDS: CHOLECALCIFEROL (VIT D3) 1,000 UNITS TABLET PO SCH (08:29)
[2017-12-17] MEDS: SODIUM CHLORIDE 1 GM TABLET PO SCH ×3 (08:29→17:04)
[2017-12-17] MEDS: FLUoxetine HCL 20 MG CAPSULE PO SCH (08:29)
[2017-12-17 11:39] VITALS: BP 112/76
[2017-12-17 16:13] VITALS: BP 119/82
[2017-12-17] MEDS: PALIPERIDONE 3 MG ER TABLET PO SCH (20:12)
[2017-12-18 04:00] VITALS: BP 117/84
[2017-12-18] MEDS: LORazepam 2 MG TABLET PO PRN ×2 (04:08→18:13)
[2017-12-18] MEDS: NICOTINE POLACRILEX 2 MG LOZENGE PO PRN ×3 (04:08→20:14)
[2017-12-18 08:21] VITALS: BP 112/81
[2017-12-18] MEDS: FLUoxetine HCL 20 MG CAPSULE PO SCH (08:33)
[2017-12-18] MEDS: CHOLECALCIFEROL (VIT D3) 1,000 UNITS TABLET PO SCH (08:34)
[2017-12-18 16:04] VITALS: BP 123/81
[2017-12-18] MEDS: PALIPERIDONE 3 MG ER TABLET PO SCH (20:12)
[2017-12-19 01:20] VITALS: BP 110/70
[2017-12-19] MEDS: LORazepam 2 MG TABLET PO PRN ×4 (01:51→16:54)
[2017-12-19 07:42] LABS: ANION GAP 7 mmol/L (8-16); CARBON DIOXIDE 30 mmol/L (22-29); CHLORIDE 102 mmol/L (98-107); CREATININE 0.79 mg/dL (0.60-1.30); GLOMERULAR FILTR. RATE CALC > 60 mL/min (>60); GLUCOSE,RANDOM 86 mg/dL (70-110); POTASSIUM 4.6 mmol/L (3.5-5.1); SODIUM SERUM 139 mmol/L (136-145); UREA NITROGEN, BLOOD 13 mg/dL (7-18)
[2017-12-19 08:00] VITALS: BP 131/82
[2017-12-19] MEDS: NICOTINE POLACRILEX 2 MG LOZENGE PO PRN ×3 (08:11→15:46)
[2017-12-19] MEDS: FLUoxetine HCL 20 MG CAPSULE PO SCH (08:11)
[2017-12-19] MEDS: CHOLECALCIFEROL (VIT D3) 1,000 UNITS TABLET PO SCH (08:11)
[2017-12-19 17:43] VITALS: BP 135/86
[2017-12-19] MEDS: PALIPERIDONE 3 MG ER TABLET PO SCH (20:19)
[2017-12-20 03:51] VITALS: BP 124/75
[2017-12-20] MEDS: NICOTINE POLACRILEX 2 MG LOZENGE PO PRN ×4 (03:53→17:21)
[2017-12-20] MEDS: LORazepam 2 MG TABLET PO PRN ×4 (03:53→17:20)
[2017-12-20 08:17] VITALS: BP 110/67
[2017-12-20] MEDS: CHOLECALCIFEROL (VIT D3) 1,000 UNITS TABLET PO SCH (08:43)
[2017-12-20] MEDS: FLUoxetine HCL 20 MG CAPSULE PO SCH (08:43)
[2017-12-20 11:01] VITALS: BP 116/79
[2017-12-20] MEDS: IBUPROFEN 600 MG TABLET PO PRN (11:01)
[2017-12-20 16:09] VITALS: BP 123/81
[2017-12-20] MEDS: PALIPERIDONE 3 MG ER TABLET PO SCH (20:20)
[2017-12-21 04:58] VITALS: BP 114/70
[2017-12-21] MEDS: LORazepam 2 MG TABLET PO PRN ×3 (05:03→14:07)
[2017-12-21] MEDS: NICOTINE POLACRILEX 2 MG LOZENGE PO PRN ×3 (05:03→12:23)
[2017-12-21] MEDS: FLUoxetine HCL 20 MG CAPSULE PO SCH (08:08)
[2017-12-21] MEDS: CHOLECALCIFEROL (VIT D3) 1,000 UNITS TABLET PO SCH (08:08)
[2017-12-21 08:14] VITALS: BP 98/62
[2017-12-21 09:02] VITALS: BP 117/69
[2017-12-21 16:24] VITALS: BP 132/81
[2017-12-21] MEDS: PALIPERIDONE 3 MG ER TABLET PO SCH (20:42)
[2017-12-22 03:38] VITALS: BP 110/68
[2017-12-22] MEDS: NICOTINE POLACRILEX 2 MG LOZENGE PO PRN ×4 (03:41→17:53)
[2017-12-22] MEDS: LORazepam 2 MG TABLET PO PRN ×2 (03:41→13:37)
[2017-12-22] MEDS: FLUoxetine HCL 20 MG CAPSULE PO SCH (08:34)
[2017-12-22] MEDS: CHOLECALCIFEROL (VIT D3) 1,000 UNITS TABLET PO SCH (08:34)
[2017-12-22 09:53] VITALS: BP 114/74
[2017-12-22] MEDS: HALOPERIDOL 5 MG TABLET PO PRN (13:37)
[2017-12-22 16:13] VITALS: BP 116/75
[2017-12-22] MEDS: PALIPERIDONE 3 MG ER TABLET PO SCH (20:18)
[2017-12-23 00:02] VITALS: BP 116/63
[2017-12-23] MEDS: LORazepam 2 MG TABLET PO PRN ×4 (00:05→14:28)
[2017-12-23] MEDS: NICOTINE POLACRILEX 2 MG LOZENGE PO PRN ×3 (05:56→14:32)
[2017-12-23 08:50] VITALS: BP 115/72
[2017-12-23] MEDS: CHOLECALCIFEROL (VIT D3) 1,000 UNITS TABLET PO SCH (09:35)
[2017-12-23] MEDS: FLUoxetine HCL 20 MG CAPSULE PO SCH (09:35)
[2017-12-23 16:11] VITALS: BP 119/77
[2017-12-23] MEDS: PALIPERIDONE 3 MG ER TABLET PO SCH (20:48)
[2017-12-24 01:45] VITALS: BP 102/78
[2017-12-24] MEDS: LORazepam 2 MG TABLET PO PRN ×4 (01:50→22:31)
[2017-12-24] MEDS: FLUoxetine HCL 20 MG CAPSULE PO SCH (08:39)
[2017-12-24] MEDS: CHOLECALCIFEROL (VIT D3) 1,000 UNITS TABLET PO SCH (08:39)
[2017-12-24] MEDS: NICOTINE POLACRILEX 2 MG LOZENGE PO PRN ×4 (08:40→22:32)
[2017-12-24 08:50] VITALS: BP 109/66
[2017-12-24 16:46] VITALS: BP 118/79
[2017-12-24] MEDS: PALIPERIDONE 3 MG ER TABLET PO SCH (20:26)
[2017-12-25 00:48] VITALS: BP 120/81
[2017-12-25] MEDS: ZOLPIDEM TARTRATE 10 MG TABLET PO PRN (00:52)
[2017-12-25] MEDS: LORazepam 2 MG TABLET PO PRN ×3 (06:18→17:28)
[2017-12-25] MEDS: NICOTINE POLACRILEX 2 MG LOZENGE PO PRN ×3 (06:18→15:24)
[2017-12-25 08:34] VITALS: BP 113/70
[2017-12-25] MEDS: FLUoxetine HCL 20 MG CAPSULE PO SCH (09:00)
[2017-12-25] MEDS: CHOLECALCIFEROL (VIT D3) 1,000 UNITS TABLET PO SCH (09:00)
[2017-12-25] MEDS: HALOPERIDOL 5 MG TABLET PO PRN (16:20)
[2017-12-25 16:21] VITALS: BP 119/81
[2017-12-25] MEDS: PALIPERIDONE 3 MG ER TABLET PO SCH (20:21)
[2017-12-26 04:32] VITALS: BP 123/74
[2017-12-26] MEDS: LORazepam 2 MG TABLET PO PRN ×4 (04:35→22:31)
[2017-12-26] MEDS: NICOTINE POLACRILEX 2 MG LOZENGE PO PRN ×4 (04:35→22:30)
[2017-12-26 08:28] VITALS: BP 109/65
[2017-12-26] MEDS: CHOLECALCIFEROL (VIT D3) 1,000 UNITS TABLET PO SCH (08:56)
[2017-12-26] MEDS: FLUoxetine HCL 20 MG CAPSULE PO SCH (08:56)
[2017-12-26 16:26] VITALS: BP 121/81
[2017-12-26] MEDS: PALIPERIDONE 3 MG ER TABLET PO SCH (20:26)
[2017-12-27 06:07] VITALS: BP 118/78
[2017-12-27] MEDS: LORazepam 2 MG TABLET PO PRN ×4 (06:15→20:58)
[2017-12-27] MEDS: NICOTINE POLACRILEX 2 MG LOZENGE PO PRN ×4 (06:15→20:59)
[2017-12-27 08:18] VITALS: BP 120/72
[2017-12-27] MEDS: CHOLECALCIFEROL (VIT D3) 1,000 UNITS TABLET PO SCH (09:14)
[2017-12-27] MEDS: FLUoxetine HCL 20 MG CAPSULE PO SCH (09:14)
[2017-12-27] MEDS: HALOPERIDOL 5 MG TABLET PO PRN (15:58)
[2017-12-27 16:31] VITALS: BP 138/85
[2017-12-27] MEDS: PALIPERIDONE 3 MG ER TABLET PO SCH (20:39)
[2017-12-27] MEDS: ZOLPIDEM TARTRATE 10 MG TABLET PO PRN (22:21)
[2017-12-28 04:35] VITALS: BP 108/76
[2017-12-28] MEDS: NICOTINE POLACRILEX 2 MG LOZENGE PO PRN ×3 (04:45→14:08)
[2017-12-28] MEDS: LORazepam 2 MG TABLET PO PRN ×3 (06:26→15:45)
[2017-12-28 08:07] VITALS: BP 119/86
[2017-12-28] MEDS: CHOLECALCIFEROL (VIT D3) 1,000 UNITS TABLET PO SCH (08:17)
[2017-12-28] MEDS: FLUoxetine HCL 20 MG CAPSULE PO SCH (08:17)
[2017-12-28 16:11] VITALS: BP 138/86
[2017-12-28] MEDS: PALIPERIDONE 3 MG ER TABLET PO SCH (21:04)
[2017-12-29 03:30] VITALS: BP 112/73
[2017-12-29] MEDS: NICOTINE POLACRILEX 2 MG LOZENGE PO PRN ×3 (03:36→13:30)
[2017-12-29] MEDS: LORazepam 2 MG TABLET PO PRN ×3 (03:36→14:41)
[2017-12-29] MEDS: CHOLECALCIFEROL (VIT D3) 1,000 UNITS TABLET PO SCH (08:37)
[2017-12-29] MEDS: FLUoxetine HCL 20 MG CAPSULE PO SCH (08:38)
[2017-12-29 09:30] VITALS: BP 127/91
[2017-12-29 16:08] VITALS: BP 125/81
[2017-12-29] MEDS: PALIPERIDONE 3 MG ER TABLET PO SCH (20:36)
[2017-12-30 02:20] VITALS: BP 107/76
[2017-12-30] MEDS: NICOTINE POLACRILEX 2 MG LOZENGE PO PRN ×4 (02:23→17:55)
[2017-12-30] MEDS: LORazepam 2 MG TABLET PO PRN ×4 (02:23→17:54)
[2017-12-30 08:15] VITALS: BP 133/81
[2017-12-30] MEDS: CHOLECALCIFEROL (VIT D3) 1,000 UNITS TABLET PO SCH (08:34)
[2017-12-30] MEDS: FLUoxetine HCL 20 MG CAPSULE PO SCH (08:34)
[2017-12-30 16:13] VITALS: BP 120/76
[2017-12-30] MEDS: ACETAMINOPHEN 325 MG TABLET PO PRN (18:21)
[2017-12-30] MEDS: PALIPERIDONE 3 MG ER TABLET PO SCH (20:54)
[2017-12-30] MEDS: ZOLPIDEM TARTRATE 10 MG TABLET PO PRN (20:54)
[2017-12-31 01:36] VITALS: BP 102/64
[2017-12-31] MEDS: NICOTINE POLACRILEX 2 MG LOZENGE PO PRN ×3 (04:19→18:22)
[2017-12-31] MEDS: LORazepam 2 MG TABLET PO PRN ×3 (04:24→18:22)
[2017-12-31 08:24] VITALS: BP 121/82
[2017-12-31] MEDS: FLUoxetine HCL 20 MG CAPSULE PO SCH (08:29)
[2017-12-31] MEDS: CHOLECALCIFEROL (VIT D3) 1,000 UNITS TABLET PO SCH (08:29)
[2017-12-31 16:00] VITALS: BP 123/81
[2017-12-31] MEDS: HALOPERIDOL 5 MG TABLET PO PRN (18:44)
[2017-12-31] MEDS: PALIPERIDONE 3 MG ER TABLET PO SCH (20:48)
[2017-12-31] MEDS: ZOLPIDEM TARTRATE 10 MG TABLET PO PRN (21:11)
[2018-01-01 01:41] VITALS: BP 109/65
[2018-01-01] MEDS: LORazepam 2 MG TABLET PO PRN ×3 (06:00→21:28)
[2018-01-01 06:01] VITALS: BP 119/66
[2018-01-01] MEDS: NICOTINE POLACRILEX 2 MG LOZENGE PO PRN ×3 (06:01→14:39)
[2018-01-01 08:35] VITALS: BP 122/61
[2018-01-01] MEDS: FLUoxetine HCL 20 MG CAPSULE PO SCH (09:12)
[2018-01-01] MEDS: CHOLECALCIFEROL (VIT D3) 1,000 UNITS TABLET PO SCH (09:12)
[2018-01-01] MEDS: HALOPERIDOL 5 MG TABLET PO PRN ×2 (12:37→21:29)
[2018-01-01 16:46] VITALS: BP 108/78
[2018-01-01] MEDS: ZOLPIDEM TARTRATE 10 MG TABLET PO PRN (21:28)
[2018-01-01] MEDS: PALIPERIDONE 3 MG ER TABLET PO SCH (21:29)
[2018-01-02 01:58] VITALS: BP 111/68
[2018-01-02] MEDS: LORazepam 2 MG TABLET PO PRN ×3 (04:03→14:48)
[2018-01-02 09:06] VITALS: BP 125/83
[2018-01-02] MEDS: FLUoxetine HCL 20 MG CAPSULE PO SCH (09:44)
[2018-01-02] MEDS: CHOLECALCIFEROL (VIT D3) 1,000 UNITS TABLET PO SCH (09:45)
[2018-01-02] MEDS: NICOTINE POLACRILEX 2 MG LOZENGE PO PRN ×2 (10:03→12:14)
[2018-01-02] MEDS: HALOPERIDOL 5 MG TABLET PO PRN (12:31)
[2018-01-02 16:23] VITALS: BP 109/73
[2018-01-02] MEDS: ZOLPIDEM TARTRATE 10 MG TABLET PO PRN (20:53)
[2018-01-02] MEDS: PALIPERIDONE 3 MG ER TABLET PO SCH (20:53)
[2018-01-03 01:33] VITALS: BP 103/67
[2018-01-03] MEDS: LORazepam 2 MG TABLET PO PRN ×3 (04:00→15:12)
[2018-01-03] MEDS: HALOPERIDOL 5 MG TABLET PO PRN (04:00)
[2018-01-03] MEDS: CHOLECALCIFEROL (VIT D3) 1,000 UNITS TABLET PO SCH (08:23)
[2018-01-03] MEDS: FLUoxetine HCL 20 MG CAPSULE PO SCH (08:23)
[2018-01-03 08:32] VITALS: BP 121/76
[2018-01-03] MEDS: NICOTINE POLACRILEX 2 MG LOZENGE PO PRN ×4 (08:34→18:35)
[2018-01-03 16:17] VITALS: BP 135/75
[2018-01-03 19:25] VITALS: BP 114/75
[2018-01-03] MEDS: ACETAMINOPHEN 325 MG TABLET PO PRN (19:29)
[2018-01-03] MEDS: ZOLPIDEM TARTRATE 10 MG TABLET PO PRN (21:00)
[2018-01-03] MEDS: PALIPERIDONE 3 MG ER TABLET PO SCH (21:00)
[2018-01-04] MEDS: NICOTINE POLACRILEX 2 MG LOZENGE PO PRN ×5 (01:32→15:46)
[2018-01-04] MEDS: LORazepam 2 MG TABLET PO PRN ×3 (01:32→13:10)
[2018-01-04 01:33] VITALS: BP 120/89
[2018-01-04] MEDS: HALOPERIDOL 5 MG TABLET PO PRN ×2 (02:35→16:08)
[2018-01-04] MEDS: IBUPROFEN 600 MG TABLET PO PRN ×3 (04:00→17:06)
[2018-01-04 08:14] VITALS: BP 119/73
[2018-01-04] MEDS: CHOLECALCIFEROL (VIT D3) 1,000 UNITS TABLET PO SCH (08:16)
[2018-01-04] MEDS: FLUoxetine HCL 20 MG CAPSULE PO SCH (08:16)
[2018-01-04 10:24] VITALS: BP 128/80
[2018-01-04 16:38] VITALS: BP 130/85
[2018-01-04] MEDS: PALIPERIDONE 3 MG ER TABLET PO SCH (20:35)
[2018-01-04] MEDS: ZOLPIDEM TARTRATE 10 MG TABLET PO PRN (20:35)
[2018-01-05 02:49] VITALS: BP 122/81
[2018-01-05] MEDS: LORazepam 2 MG TABLET PO PRN ×2 (02:50→10:12)
[2018-01-05] MEDS: HALOPERIDOL 5 MG TABLET PO PRN ×2 (02:50→18:08)
[2018-01-05] MEDS: NICOTINE POLACRILEX 2 MG LOZENGE PO PRN ×4 (02:51→18:08)
[2018-01-05 08:29] VITALS: BP 118/72
[2018-01-05] MEDS: FLUoxetine HCL 20 MG CAPSULE PO SCH (10:11)
[2018-01-05] MEDS: CHOLECALCIFEROL (VIT D3) 1,000 UNITS TABLET PO SCH (10:11)
[2018-01-05 16:44] VITALS: BP 108/77
[2018-01-05] MEDS: PALIPERIDONE 3 MG ER TABLET PO SCH (20:52)
[2018-01-06] MEDS: NICOTINE POLACRILEX 2 MG LOZENGE PO PRN ×5 (01:50→16:30)
[2018-01-06 02:26] VITALS: BP 118/74
[2018-01-06] MEDS: HALOPERIDOL 5 MG TABLET PO PRN ×2 (06:06→13:19)
[2018-01-06 08:13] VITALS: BP 140/98
[2018-01-06 08:24] VITALS: BP 138/92
[2018-01-06] MEDS: CHOLECALCIFEROL (VIT D3) 1,000 UNITS TABLET PO SCH (08:25)
[2018-01-06] MEDS: FLUoxetine HCL 20 MG CAPSULE PO SCH (08:25)
[2018-01-06] MEDS: IBUPROFEN 600 MG TABLET PO PRN (08:25)
[2018-01-06] MEDS: LORazepam 2 MG TABLET PO PRN ×2 (11:30→16:29)
[2018-01-06 16:11] VITALS: BP 121/80
[2018-01-06] MEDS: PALIPERIDONE 3 MG ER TABLET PO SCH (20:24)
[2018-01-07] MEDS: LORazepam 2 MG TABLET PO PRN ×4 (01:53→20:56)
[2018-01-07 01:54] VITALS: BP 115/80
[2018-01-07] MEDS: NICOTINE POLACRILEX 2 MG LOZENGE PO PRN ×4 (01:54→13:44)
[2018-01-07] MEDS: FLUoxetine HCL 20 MG CAPSULE PO SCH (08:34)
[2018-01-07] MEDS: CHOLECALCIFEROL (VIT D3) 1,000 UNITS TABLET PO SCH (08:34)
[2018-01-07 09:18] VITALS: BP 118/87
[2018-01-07 16:26] VITALS: BP 109/80
[2018-01-07] MEDS: PALIPERIDONE 3 MG ER TABLET PO SCH (20:50)
[2018-01-08 03:50] VITALS: BP 135/69
[2018-01-08] MEDS: LORazepam 2 MG TABLET PO PRN ×4 (03:52→17:11)
[2018-01-08] MEDS: NICOTINE POLACRILEX 2 MG LOZENGE PO PRN ×3 (03:53→16:17)
[2018-01-08] MEDS: FLUoxetine HCL 20 MG CAPSULE PO SCH (08:28)
[2018-01-08] MEDS: CHOLECALCIFEROL (VIT D3) 1,000 UNITS TABLET PO SCH (08:28)
[2018-01-08 08:33] VITALS: BP 120/82
[2018-01-08 14:28] VITALS: BP 139/78
[2018-01-08] MEDS: IBUPROFEN 600 MG TABLET PO PRN (14:28)
[2018-01-08 16:11] VITALS: BP 115/75
[2018-01-08] MEDS: PALIPERIDONE 3 MG ER TABLET PO SCH (20:16)
[2018-01-09 01:10] VITALS: BP 114/86
[2018-01-09] MEDS: NICOTINE POLACRILEX 2 MG LOZENGE PO PRN ×4 (01:17→20:52)
[2018-01-09] MEDS: HALOPERIDOL 5 MG TABLET PO PRN (01:17)
[2018-01-09] MEDS: ZOLPIDEM TARTRATE 10 MG TABLET PO PRN ×2 (01:39→21:46)
[2018-01-09] MEDS: LORazepam 2 MG TABLET PO PRN ×4 (06:15→20:52)
[2018-01-09] MEDS: CHOLECALCIFEROL (VIT D3) 1,000 UNITS TABLET PO SCH (08:17)
[2018-01-09] MEDS: FLUoxetine HCL 20 MG CAPSULE PO SCH (08:17)
[2018-01-09 08:30] VITALS: BP 117/91
[2018-01-09 16:45] VITALS: BP 127/85
[2018-01-09] MEDS: PALIPERIDONE 3 MG ER TABLET PO SCH (20:15)
[2018-01-10 05:30] VITALS: BP 104/85
[2018-01-10] MEDS: LORazepam 2 MG TABLET PO PRN ×4 (05:50→23:50)
[2018-01-10] MEDS: NICOTINE POLACRILEX 2 MG LOZENGE PO PRN ×5 (05:50→21:57)
[2018-01-10 06:34] VITALS: BP 121/87
[2018-01-10] MEDS ORDERED: BACITRACIN 28.4 GM OINTMENT TP PRN (07:45)
[2018-01-10] MEDS ORDERED: PETROLATUM,WHITE 71 GM JELLY TP PRN (07:45)
[2018-01-10] MEDS ORDERED: MAGNESIUM HYDROXIDE SUSPENSION 30 ML UDCUP PO PRN (07:45)
[2018-01-10] MEDS ORDERED: CloNIDine HCL 0.1 MG TABLET PO PRN (07:45)
[2018-01-10] MEDS ORDERED: BENZOCAINE/MENTHOL LOZENGE MM PRN (07:45)
[2018-01-10] MEDS ORDERED: ALBUTEROL SULFATE HFA 90 MCG/PUFF 8 GM INHALER IH PRN (07:45)
[2018-01-10] MEDS ORDERED: MAG HYDROX/AL HYDROX/SIMETH ES 30 ML SUSPENSION UDCUP PO PRN (07:45)
[2018-01-10] MEDS ORDERED: ONDANSETRON HCL 4 MG TABLET PO PRN (07:45)
[2018-01-10] MEDS ORDERED: LOPERAMIDE HCL 2 MG CAPSULE PO PRN (07:45)
[2018-01-10] MEDS: CHOLECALCIFEROL (VIT D3) 1,000 UNITS TABLET PO SCH (08:21)
[2018-01-10] MEDS: FLUoxetine HCL 20 MG CAPSULE PO SCH (08:22)
[2018-01-10] MEDS: OMEPRAZOLE 20 MG CAPSULE PO SCH (08:22)
[2018-01-10] MEDS: DOCUSATE SODIUM 100 MG CAPSULE PO SCH (08:36)
[2018-01-10 08:43] VITALS: BP 109/75
[2018-01-10 16:20] VITALS: BP 108/75
[2018-01-10] MEDS: IBUPROFEN 600 MG TABLET PO PRN (16:38)
[2018-01-10] MEDS: ZOLPIDEM TARTRATE 10 MG TABLET PO PRN (20:19)
[2018-01-10] MEDS: PALIPERIDONE 3 MG ER TABLET PO SCH (20:19)
[2018-01-10 23:48] VITALS: BP 124/90
[2018-01-11 00:10] VITALS: BP 124/90
[2018-01-11] MEDS: NICOTINE POLACRILEX 2 MG LOZENGE PO PRN ×5 (03:14→20:44)
[2018-01-11 08:11] VITALS: BP 118/80
[2018-01-11] MEDS: DOCUSATE SODIUM 100 MG CAPSULE PO SCH (08:18)
[2018-01-11] MEDS: FLUoxetine HCL 20 MG CAPSULE PO SCH (08:18)
[2018-01-11] MEDS: LORazepam 2 MG TABLET PO PRN ×3 (08:18→16:51)
[2018-01-11] MEDS: OMEPRAZOLE 20 MG CAPSULE PO SCH (08:18)
[2018-01-11] MEDS: CHOLECALCIFEROL (VIT D3) 1,000 UNITS TABLET PO SCH (08:18)
[2018-01-11 17:22] VITALS: BP 121/81
[2018-01-11] MEDS: PALIPERIDONE 3 MG ER TABLET PO SCH (20:28)
[2018-01-11] MEDS: ZOLPIDEM TARTRATE 10 MG TABLET PO PRN (20:28)
[2018-01-12 05:57] VITALS: BP 117/90
[2018-01-12] MEDS: LORazepam 2 MG TABLET PO PRN ×3 (06:05→16:44)
[2018-01-12 08:20] VITALS: BP 126/82
[2018-01-12] MEDS: CHOLECALCIFEROL (VIT D3) 1,000 UNITS TABLET PO SCH (08:30)
[2018-01-12] MEDS: FLUoxetine HCL 20 MG CAPSULE PO SCH (08:30)
[2018-01-12] MEDS: DOCUSATE SODIUM 100 MG CAPSULE PO SCH (08:30)
[2018-01-12] MEDS: OMEPRAZOLE 20 MG CAPSULE PO SCH (08:30)
[2018-01-12] MEDS: NICOTINE POLACRILEX 2 MG LOZENGE PO PRN ×2 (09:03→14:38)
[2018-01-12 16:27] VITALS: BP 130/66
[2018-01-12] MEDS: ZOLPIDEM TARTRATE 10 MG TABLET PO PRN (20:20)
[2018-01-12] MEDS: PALIPERIDONE 3 MG ER TABLET PO SCH (20:20)
[2018-01-13 00:01] VITALS: BP 134/82
[2018-01-13] MEDS: NICOTINE POLACRILEX 2 MG LOZENGE PO PRN ×4 (00:02→14:16)
[2018-01-13] MEDS: LORazepam 2 MG TABLET PO PRN ×4 (00:02→16:09)
[2018-01-13 08:50] VITALS: BP 145/87
[2018-01-13] MEDS: OMEPRAZOLE 20 MG CAPSULE PO SCH (09:37)
[2018-01-13] MEDS: FLUoxetine HCL 20 MG CAPSULE PO SCH (09:38)
[2018-01-13] MEDS: DOCUSATE SODIUM 100 MG CAPSULE PO SCH (09:38)
[2018-01-13] MEDS: CHOLECALCIFEROL (VIT D3) 1,000 UNITS TABLET PO SCH (09:38)
[2018-01-13 13:05] VITALS: BP 128/76
[2018-01-13] MEDS: ACETAMINOPHEN 325 MG TABLET PO PRN (13:10)
[2018-01-13 16:10] VITALS: BP 127/82
[2018-01-13] MEDS: ZOLPIDEM TARTRATE 10 MG TABLET PO PRN (20:24)
[2018-01-13] MEDS: PALIPERIDONE 3 MG ER TABLET PO SCH (20:24)
[2018-01-14 00:14] VITALS: BP 110/68
[2018-01-14] MEDS: LORazepam 2 MG TABLET PO PRN ×5 (00:15→20:52)
[2018-01-14] MEDS: NICOTINE POLACRILEX 2 MG LOZENGE PO PRN ×5 (00:15→20:52)
[2018-01-14 05:54] VITALS: BP 134/95
[2018-01-14 08:14] VITALS: BP 122/86
[2018-01-14] MEDS: DOCUSATE SODIUM 100 MG CAPSULE PO SCH (08:38)
[2018-01-14] MEDS: FLUoxetine HCL 20 MG CAPSULE PO SCH (08:38)
[2018-01-14] MEDS: OMEPRAZOLE 20 MG CAPSULE PO SCH (08:38)
[2018-01-14] MEDS: CHOLECALCIFEROL (VIT D3) 1,000 UNITS TABLET PO SCH (08:39)
[2018-01-14 13:49] VITALS: BP 134/82
[2018-01-14] MEDS: IBUPROFEN 600 MG TABLET PO PRN (13:49)
[2018-01-14 16:33] VITALS: BP 122/80
[2018-01-14] MEDS: ZOLPIDEM TARTRATE 10 MG TABLET PO PRN (20:35)
[2018-01-14] MEDS: PALIPERIDONE 3 MG ER TABLET PO SCH (20:35)
[2018-01-15 01:01] VITALS: BP 120/72
[2018-01-15] MEDS: NICOTINE POLACRILEX 2 MG LOZENGE PO PRN ×3 (04:45→15:12)
[2018-01-15 08:36] VITALS: BP 133/91
[2018-01-15] MEDS: CHOLECALCIFEROL (VIT D3) 1,000 UNITS TABLET PO SCH (09:18)
[2018-01-15] MEDS: OMEPRAZOLE 20 MG CAPSULE PO SCH (09:18)
[2018-01-15] MEDS: DOCUSATE SODIUM 100 MG CAPSULE PO SCH (09:18)
[2018-01-15] MEDS: FLUoxetine HCL 20 MG CAPSULE PO SCH (09:18)
[2018-01-15] MEDS: LORazepam 2 MG TABLET PO PRN ×2 (10:17→15:10)
[2018-01-15 16:33] VITALS: BP 102/83
[2018-01-15] MEDS: PALIPERIDONE 3 MG ER TABLET PO SCH (20:36)
[2018-01-15] MEDS: ZOLPIDEM TARTRATE 10 MG TABLET PO PRN (20:37)
[2018-01-16] VITALS: BP 123/65
[2018-01-16] MEDS: LORazepam 2 MG TABLET PO PRN ×4 (00:13→20:53)
[2018-01-16] MEDS: NICOTINE POLACRILEX 2 MG LOZENGE PO PRN ×5 (00:15→21:29)
[2018-01-16 01:05] VITALS: BP 127/79
[2018-01-16] MEDS: ACETAMINOPHEN 325 MG TABLET PO PRN (01:08)
[2018-01-16 08:15] VITALS: BP 115/79
[2018-01-16] MEDS: FLUoxetine HCL 20 MG CAPSULE PO SCH (08:26)
[2018-01-16] MEDS: DOCUSATE SODIUM 100 MG CAPSULE PO SCH (08:26)
[2018-01-16] MEDS: OMEPRAZOLE 20 MG CAPSULE PO SCH (08:26)
[2018-01-16] MEDS: CHOLECALCIFEROL (VIT D3) 1,000 UNITS TABLET PO SCH (08:26)
[2018-01-16 16:16] VITALS: BP 123/86
[2018-01-16] MEDS: PALIPERIDONE 3 MG ER TABLET PO SCH (20:04)
[2018-01-16] MEDS: ZOLPIDEM TARTRATE 10 MG TABLET PO PRN (21:29)
[2018-01-17 05:45] VITALS: BP 118/82
[2018-01-17] MEDS: LORazepam 2 MG TABLET PO PRN ×3 (06:00→14:49)
[2018-01-17] MEDS: CHOLECALCIFEROL (VIT D3) 1,000 UNITS TABLET PO SCH (08:27)
[2018-01-17] MEDS: DOCUSATE SODIUM 100 MG CAPSULE PO SCH (08:27)
[2018-01-17] MEDS: NICOTINE POLACRILEX 2 MG LOZENGE PO PRN ×3 (08:27→13:00)
[2018-01-17] MEDS: FLUoxetine HCL 20 MG CAPSULE PO SCH (08:27)
[2018-01-17] MEDS: OMEPRAZOLE 20 MG CAPSULE PO SCH (08:27)
[2018-01-17 08:41] VITALS: BP 134/83
[2018-01-17 16:07] VITALS: BP 137/89
[2018-01-17] MEDS: PALIPERIDONE 3 MG ER TABLET PO SCH (20:32)
[2018-01-18 00:01] VITALS: BP 118/76
[2018-01-18] MEDS: LORazepam 2 MG TABLET PO PRN ×4 (00:04→15:03)
[2018-01-18] MEDS: NICOTINE POLACRILEX 2 MG LOZENGE PO PRN ×4 (00:04→16:32)
[2018-01-18] MEDS: ZOLPIDEM TARTRATE 10 MG TABLET PO PRN ×2 (01:03→20:21)
[2018-01-18] MEDS: DOCUSATE SODIUM 100 MG CAPSULE PO SCH (08:19)
[2018-01-18] MEDS: MULTIVITAMINS WITH MINERALS, THERAPEUTIC TABLET PO SCH (08:20)
[2018-01-18] MEDS: CHOLECALCIFEROL (VIT D3) 1,000 UNITS TABLET PO SCH (08:20)
[2018-01-18] MEDS: FLUoxetine HCL 20 MG CAPSULE PO SCH (08:20)
[2018-01-18] MEDS: OMEPRAZOLE 20 MG CAPSULE PO SCH (08:20)
[2018-01-18 08:38] VITALS: BP 137/94
[2018-01-18 16:24] VITALS: BP 126/77
[2018-01-18] MEDS: PALIPERIDONE 3 MG ER TABLET PO SCH (20:21)
[2018-01-19 01:53] VITALS: BP 100/65
[2018-01-19] MEDS: LORazepam 2 MG TABLET PO PRN ×4 (03:51→20:40)
[2018-01-19] MEDS: NICOTINE POLACRILEX 2 MG LOZENGE PO PRN ×5 (03:51→21:54)
[2018-01-19 08:36] VITALS: BP 134/91
[2018-01-19] MEDS: OMEPRAZOLE 20 MG CAPSULE PO SCH (08:57)
[2018-01-19] MEDS: FLUoxetine HCL 20 MG CAPSULE PO SCH (08:58)
[2018-01-19] MEDS: CHOLECALCIFEROL (VIT D3) 1,000 UNITS TABLET PO SCH (08:58)
[2018-01-19] MEDS: DOCUSATE SODIUM 100 MG CAPSULE PO SCH (08:58)
[2018-01-19] MEDS: MULTIVITAMINS WITH MINERALS, THERAPEUTIC TABLET PO SCH (08:58)
[2018-01-19] MEDS: ACETAMINOPHEN 325 MG TABLET PO PRN (09:05)
[2018-01-19 09:07] VITALS: BP 127/83
[2018-01-19 10:05] VITALS: BP 122/84
[2018-01-19 16:14] VITALS: BP 132/85
[2018-01-19] MEDS: PALIPERIDONE 3 MG ER TABLET PO SCH (20:40)
[2018-01-20] VITALS: BP 138/88
[2018-01-20] MEDS: NICOTINE POLACRILEX 2 MG LOZENGE PO PRN ×3 (02:57→15:43)
[2018-01-20 05:50] VITALS: BP 117/78
[2018-01-20] MEDS: LORazepam 2 MG TABLET PO PRN ×3 (06:09→15:43)
[2018-01-20] MEDS: OMEPRAZOLE 20 MG CAPSULE PO SCH (08:19)
[2018-01-20] MEDS: DOCUSATE SODIUM 100 MG CAPSULE PO SCH (08:20)
[2018-01-20] MEDS: FLUoxetine HCL 20 MG CAPSULE PO SCH (08:20)
[2018-01-20] MEDS: MULTIVITAMINS WITH MINERALS, THERAPEUTIC TABLET PO SCH (08:20)
[2018-01-20] MEDS: CHOLECALCIFEROL (VIT D3) 1,000 UNITS TABLET PO SCH (08:20)
[2018-01-20 08:31] VITALS: BP 119/78
[2018-01-20 16:37] VITALS: BP 119/74
[2018-01-20] MEDS: ZOLPIDEM TARTRATE 10 MG TABLET PO PRN (21:23)
[2018-01-20] MEDS: PALIPERIDONE 3 MG ER TABLET PO SCH (21:23)
[2018-01-21] MEDS: NICOTINE POLACRILEX 2 MG LOZENGE PO PRN ×4 (02:56→17:31)
[2018-01-21] MEDS: LORazepam 2 MG TABLET PO PRN ×4 (02:56→17:29)
[2018-01-21 05:27] VITALS: BP 118/87
[2018-01-21] MEDS: DOCUSATE SODIUM 100 MG CAPSULE PO SCH (08:27)
[2018-01-21] MEDS: OMEPRAZOLE 20 MG CAPSULE PO SCH (08:27)
[2018-01-21] MEDS: MULTIVITAMINS WITH MINERALS, THERAPEUTIC TABLET PO SCH (08:27)
[2018-01-21] MEDS: CHOLECALCIFEROL (VIT D3) 1,000 UNITS TABLET PO SCH (08:27)
[2018-01-21] MEDS: FLUoxetine HCL 20 MG CAPSULE PO SCH (08:27)
[2018-01-21 09:46] VITALS: BP 117/85
[2018-01-21 16:00] VITALS: BP 135/78
[2018-01-21] MEDS: PALIPERIDONE 3 MG ER TABLET PO SCH (21:06)
[2018-01-21] MEDS: ZOLPIDEM TARTRATE 10 MG TABLET PO PRN (21:21)
[2018-01-22 05:10] VITALS: BP 113/78
[2018-01-22] MEDS: LORazepam 2 MG TABLET PO PRN ×3 (05:13→16:36)
[2018-01-22] MEDS: NICOTINE POLACRILEX 2 MG LOZENGE PO PRN ×3 (05:13→16:36)
[2018-01-22 06:05] VITALS: BP 115/75
[2018-01-22] MEDS: ACETAMINOPHEN 325 MG TABLET PO PRN (06:06)
[2018-01-22 08:23] VITALS: BP 119/77
[2018-01-22] MEDS: OMEPRAZOLE 20 MG CAPSULE PO SCH (08:27)
[2018-01-22] MEDS: DOCUSATE SODIUM 100 MG CAPSULE PO SCH (08:27)
[2018-01-22] MEDS: CHOLECALCIFEROL (VIT D3) 1,000 UNITS TABLET PO SCH (08:27)
[2018-01-22] MEDS: FLUoxetine HCL 20 MG CAPSULE PO SCH (08:27)
[2018-01-22] MEDS: MULTIVITAMINS WITH MINERALS, THERAPEUTIC TABLET PO SCH (08:27)
[2018-01-22 16:26] VITALS: BP 136/86
[2018-01-22] MEDS: PALIPERIDONE 3 MG ER TABLET PO SCH (20:35)
[2018-01-22] MEDS: ZOLPIDEM TARTRATE 10 MG TABLET PO PRN (20:35)
[2018-01-23 01:47] VITALS: BP 130/79
[2018-01-23] MEDS: LORazepam 2 MG TABLET PO PRN ×4 (01:48→16:37)
[2018-01-23] MEDS: NICOTINE POLACRILEX 2 MG LOZENGE PO PRN ×4 (01:48→16:37)
[2018-01-23] MEDS: OMEPRAZOLE 20 MG CAPSULE PO SCH (08:19)
[2018-01-23] MEDS: DOCUSATE SODIUM 100 MG CAPSULE PO SCH (08:19)
[2018-01-23] MEDS: MULTIVITAMINS WITH MINERALS, THERAPEUTIC TABLET PO SCH (08:19)
[2018-01-23] MEDS: CHOLECALCIFEROL (VIT D3) 1,000 UNITS TABLET PO SCH (08:19)
[2018-01-23] MEDS: FLUoxetine HCL 20 MG CAPSULE PO SCH (08:19)
[2018-01-23 08:50] VITALS: BP 135/92
[2018-01-23 14:15] VITALS: BP 138/85
[2018-01-23] MEDS: ACETAMINOPHEN 325 MG TABLET PO PRN (14:16)
[2018-01-23 16:30] VITALS: BP 140/84
[2018-01-23] MEDS: PALIPERIDONE 3 MG ER TABLET PO SCH (20:20)
[2018-01-23] MEDS: ZOLPIDEM TARTRATE 10 MG TABLET PO PRN (20:20)
[2018-01-24 04:39] VITALS: BP 132/86
[2018-01-24] MEDS: LORazepam 2 MG TABLET PO PRN ×4 (04:46→20:55)
[2018-01-24] MEDS: NICOTINE POLACRILEX 2 MG LOZENGE PO PRN ×5 (04:47→20:56)
[2018-01-24 08:25] VITALS: BP 112/68
[2018-01-24] MEDS: OMEPRAZOLE 20 MG CAPSULE PO SCH (09:28)
[2018-01-24] MEDS: DOCUSATE SODIUM 100 MG CAPSULE PO SCH (09:28)
[2018-01-24] MEDS: FLUoxetine HCL 20 MG CAPSULE PO SCH (09:29)
[2018-01-24] MEDS: MULTIVITAMINS WITH MINERALS, THERAPEUTIC TABLET PO SCH (09:29)
[2018-01-24] MEDS: CHOLECALCIFEROL (VIT D3) 1,000 UNITS TABLET PO SCH (09:30)
[2018-01-24 16:18] VITALS: BP 138/83
[2018-01-24] MEDS: PALIPERIDONE 3 MG ER TABLET PO SCH (20:10)
[2018-01-24] MEDS: ZOLPIDEM TARTRATE 10 MG TABLET PO PRN (20:10)
[2018-01-25] MEDS: NICOTINE POLACRILEX 2 MG LOZENGE PO PRN ×4 (01:19→20:30)
[2018-01-25 01:58] VITALS: BP 137/80
[2018-01-25 04:59] VITALS: BP 139/99
[2018-01-25] MEDS: LORazepam 2 MG TABLET PO PRN ×4 (05:01→20:29)
[2018-01-25] MEDS: MULTIVITAMINS WITH MINERALS, THERAPEUTIC TABLET PO SCH (08:12)
[2018-01-25] MEDS: FLUoxetine HCL 20 MG CAPSULE PO SCH (08:12)
[2018-01-25] MEDS: OMEPRAZOLE 20 MG CAPSULE PO SCH (08:12)
[2018-01-25] MEDS: DOCUSATE SODIUM 100 MG CAPSULE PO SCH (08:12)
[2018-01-25] MEDS: CHOLECALCIFEROL (VIT D3) 1,000 UNITS TABLET PO SCH (08:12)
[2018-01-25 09:24] VITALS: BP 131/89
[2018-01-25 12:50] VITALS: BP 135/85
[2018-01-25] MEDS: IBUPROFEN 600 MG TABLET PO PRN ×2 (12:52→21:47)
[2018-01-25 16:21] VITALS: BP 140/88
[2018-01-25] MEDS: PALIPERIDONE 3 MG ER TABLET PO SCH (20:29)
[2018-01-25] MEDS: ZOLPIDEM TARTRATE 10 MG TABLET PO PRN (20:50)
[2018-01-25 21:45] VITALS: BP 134/78
[2018-01-26 04:52] VITALS: BP 120/81
[2018-01-26] MEDS: NICOTINE POLACRILEX 2 MG LOZENGE PO PRN ×4 (04:53→18:58)
[2018-01-26] MEDS: LORazepam 2 MG TABLET PO PRN ×4 (05:39→18:58)
[2018-01-26] MEDS: MULTIVITAMINS WITH MINERALS, THERAPEUTIC TABLET PO SCH (08:13)
[2018-01-26] MEDS: OMEPRAZOLE 20 MG CAPSULE PO SCH (08:13)
[2018-01-26] MEDS: CHOLECALCIFEROL (VIT D3) 1,000 UNITS TABLET PO SCH (08:14)
[2018-01-26] MEDS: DOCUSATE SODIUM 100 MG CAPSULE PO SCH (08:14)
[2018-01-26] MEDS: FLUoxetine HCL 20 MG CAPSULE PO SCH (08:14)
[2018-01-26 08:45] VITALS: BP 135/86
[2018-01-26 16:16] VITALS: BP 129/92
[2018-01-26 20:13] VITALS: BP 122/80
[2018-01-26] MEDS: IBUPROFEN 600 MG TABLET PO PRN (20:13)
[2018-01-26] MEDS: PALIPERIDONE 3 MG ER TABLET PO SCH (20:13)
[2018-01-26] MEDS ORDERED: OMEP20 PO (20:37)
[2018-01-26] MEDS ORDERED: PALI3 PO (20:37)
[2018-01-26] MEDS ORDERED: MULT-1239 PO (20:37)
[2018-01-26] MEDS ORDERED: FLUO-191 PO (20:37)
[2018-01-26] MEDS ORDERED: CHOL100062 PO (20:37)
[2018-01-26] MEDS ORDERED: DSS100 PO (20:37)
[2018-01-26] MEDS: ZOLPIDEM TARTRATE 10 MG TABLET PO PRN (21:17)
[2018-01-27] MEDS: NICOTINE POLACRILEX 2 MG LOZENGE PO PRN ×3 (03:54→18:52)
[2018-01-27 04:53] VITALS: BP 138/90
[2018-01-27] MEDS: LORazepam 2 MG TABLET PO PRN ×3 (08:09→18:52)
[2018-01-27] MEDS: MULTIVITAMINS WITH MINERALS, THERAPEUTIC TABLET PO SCH (08:09)
[2018-01-27] MEDS: OMEPRAZOLE 20 MG CAPSULE PO SCH (08:09)
[2018-01-27] MEDS: FLUoxetine HCL 20 MG CAPSULE PO SCH (08:09)
[2018-01-27] MEDS: DOCUSATE SODIUM 100 MG CAPSULE PO SCH (08:09)
[2018-01-27] MEDS: CHOLECALCIFEROL (VIT D3) 1,000 UNITS TABLET PO SCH (08:09)
[2018-01-27 08:10] VITALS: BP 134/85
[2018-01-27 16:10] VITALS: BP 132/90
[2018-01-27] MEDS: PALIPERIDONE 3 MG ER TABLET PO SCH (20:23)
[2018-01-27] MEDS: ZOLPIDEM TARTRATE 10 MG TABLET PO PRN (20:23)
[2018-01-28 03:40] VITALS: BP 124/90
[2018-01-28] MEDS: LORazepam 2 MG TABLET PO PRN ×4 (03:43→17:40)
[2018-01-28] MEDS: NICOTINE POLACRILEX 2 MG LOZENGE PO PRN ×6 (03:43→21:03)
[2018-01-28] MEDS: IBUPROFEN 600 MG TABLET PO PRN ×2 (06:14→14:18)
[2018-01-28] MEDS: DOCUSATE SODIUM 100 MG CAPSULE PO SCH (08:11)
[2018-01-28] MEDS: FLUoxetine HCL 20 MG CAPSULE PO SCH (08:12)
[2018-01-28] MEDS: CHOLECALCIFEROL (VIT D3) 1,000 UNITS TABLET PO SCH (08:12)
[2018-01-28] MEDS: MULTIVITAMINS WITH MINERALS, THERAPEUTIC TABLET PO SCH (08:12)
[2018-01-28] MEDS: OMEPRAZOLE 20 MG CAPSULE PO SCH (08:16)
[2018-01-28 08:26] VITALS: BP 117/55
[2018-01-28 14:17] VITALS: BP 141/83
[2018-01-28 16:00] VITALS: BP 121/75
[2018-01-28] MEDS: ZOLPIDEM TARTRATE 10 MG TABLET PO PRN (21:02)
[2018-01-28] MEDS: PALIPERIDONE 3 MG ER TABLET PO SCH (21:02)
[2018-01-29] MEDS: NICOTINE POLACRILEX 2 MG LOZENGE PO PRN ×3 (01:01→08:45)
[2018-01-29 04:10] VITALS: BP 136/82
[2018-01-29] MEDS: LORazepam 2 MG TABLET PO PRN ×2 (04:22→08:44)
[2018-01-29] MEDS: OMEPRAZOLE 20 MG CAPSULE PO SCH (08:44)
[2018-01-29] MEDS: MULTIVITAMINS WITH MINERALS, THERAPEUTIC TABLET PO SCH (08:44)
[2018-01-29] MEDS: DOCUSATE SODIUM 100 MG CAPSULE PO SCH (08:44)
[2018-01-29] MEDS: CHOLECALCIFEROL (VIT D3) 1,000 UNITS TABLET PO SCH (08:45)
[2018-01-29] MEDS: FLUoxetine HCL 20 MG CAPSULE PO SCH (08:45)
[2018-01-29 08:46] VITALS: BP 125/88
== END 2018-01-29 13:10 | DRG 750 ==
LOC: EMS 11:47 → B3A 19:48 → B2S 11-22 11:45
PROVIDERS: ADMIT Psychiatry & Neurology Psychiatry; ATTEND Psychiatry & Neurology Psychiatry
DX: F20.0 Paranoid schizophrenia (principal); E87.1 Hypo-osmolality and hyponatremia; R45.851 Suicidal ideations; E87.6 Hypokalemia; F17.200 Nicotine dependence, unspecified, uncomplicated; E55.9 Vitamin D deficiency, unspecified; F15.10 Other stimulant abuse, uncomplicated; R63.0 Anorexia; G47.00 Insomnia, unspecified; Z91.5 Personal history of self-harm; Z91.19 Patient's noncompliance with other medical treatment and regimen; Z79.899 Other long term (current) drug therapy; Z72.89 Other problems related to lifestyle; Z71.41 Alcohol abuse counseling and surveillance of alcoholic; Z71.6 Tobacco abuse counseling; Z68.29 Body mass index [BMI] 29.0-29.9, adult; Z23 Encounter for immunization
CPT/HCPCS: 80074; 83735; 84100; 84295; 84443; 85007; 87081; 90686; G0480; J1200; J1630; J2060; Q0162